=== PATIENT | male | born 1950 | race Caucasian/White ===

== ENCOUNTER 2018-09-01 03:25 | Inpatient (IN) | payer MEDICARE, OTHER ==
[2018-09-01] VITALS (54 sets, daily range): BP systolic 76–152; BP diastolic 44–94; PULSE 68–97; RESP 11–58; BMI 21.5
[~2018-09-01] VITALS: Ht 182.9 cm; Wt 81.8 kg
[~2018-09-01 03:25] MED LIST: ASPI-781 PO; ATOR20TA38 PO; LANT3I SC; LISI10TA2 PO; METF-849 PO
[2018-09-01] MEDS ORDERED: NORepinephrine 8MG/250 ML (PMX 250 ML ONE (03:42)
[2018-09-01] MEDS ORDERED: PROPOFOL 100 ML IV STA ×2 (03:54→04:25)
[2018-09-01] MEDS ORDERED: SODIUM CHLORIDE 0.9% 500 ML BAG IV* STA (03:54)
[2018-09-01] MEDS ORDERED: VECURONIUM 100 MG in DEXTROSE 5% 100 ML IV ONE (03:54)
[2018-09-01] MEDS ORDERED: ASPIRIN 300 MG SUPP PR ONE (04:00)
[2018-09-01] MEDS ORDERED: ARTIFICIAL TEARS 15 ML OPH BOTH EYES ONE (04:00)
[2018-09-01] MEDS ORDERED: OCULAR LUBRICANT 3.5 GM OPH OINT BOTH EYES ONE (04:00)
[2018-09-01] MEDS ORDERED: FENTAnyl 50 MCG/ML VIAL IV PRN (04:00)
[2018-09-01] MEDS ORDERED: PROPOFOL 100 ML ONE (04:06)
[2018-09-01] MEDS ORDERED: CEFEPIME 2GM/50 ML (PMX) 50 ML IVPB STA (04:19)
[2018-09-01] MEDS ORDERED: SODIUM CHLORIDE 0.9% 1L BAG IV* STA (04:19)
[2018-09-01] MEDS ORDERED: VANCOMYCIN 1 GM (PMX) 250 ML IVPB STA (04:19)
[2018-09-01] MEDS ORDERED: NORepinephrine 8MG/250 ML (PMX 250 ML IV ONE (04:30)
[2018-09-01] MEDS ORDERED: FENTAnyl (DRIP) 1000 mcg/100mL 100 ML IV ONE (04:30)
--- NOTE | 2018-09-01 04:56 | ERD ---
ER Documentation Chief Complaint Chief Complaint C/O SOB,PT STATES AFTER TAKING 3 ALKAZELTZER STARTED VOMITING FOAM HPI This is a 67-year-old male who presents for ingestion of [place], started vomiting thereafter. Patient presented with acute distress, history was limited secondary to acuity of condition. Brought in by EMS, EKG showed multiple PVCs on the monitor. Shortly after arrival, patient became bradycardic, and had cardiac arrest. CPR was initiated immediately, and patient was intubated. ROS All systems reviewed and are negative except as per history of present illness. Medications Home Meds Active Scripts Metformin* (Glucophage*) 500 Mg Tab, 500 MG PO BID, #60 TAB Prov:CARMEN OVALLEEEP S. 12/23/13 Lisinopril* (Lisinopril*) 10 Mg Tablet, 10 MG PO DAILY, #30 TAB Prov:CONRAD OVALLEBRONWYN S. 12/23/13 Atorvastatin Calcium* (Atorvastatin Calcium*) 20 Mg Tab, 20 MG PO HS, #30 Prov:CARMEN OVALLEEEP S. 12/23/13 Insulin Glargine* (Lantus*) 100 Unit/Ml Soln, 22 UNIT SC HS for 30 Days Prov:RACARMEN GARLANDEEP S. 12/23/13 Aspirin* (Ecotrin*) 325 Mg Tabec, 325 MG PO DAILY, #30 Prov:CONRAD OVALLEBRONWYN S. 12/23/13 Allergies Allergies: Coded Allergies: No Known Allergies (Verified Allergy, Unknown, 12/21/13) PMhx/Soc History of Surgery: No Anesthesia Reaction: No Hx Neurological Disorder: No Hx Respiratory Disorders: No Hx Cardiac Disorders: Yes (HTN) Hx Psychiatric Problems: No Hx Miscellaneous Medical Probl: Yes (HTN, DM hx of noncompliance per family) Hx Alcohol Use: Yes (OCCASSIONALY OF WINE AND WHISKEY) Hx Substance Use: No Hx Tobacco Use: No Physical Exam Vitals Vital Signs Date Temp Pulse Resp B/P (MAP) Pulse Ox O2 O2 Flow FiO2 Time Delivery Rate 09/01/18 98 22 157/88 100 Mechanical 06:00 (111) Ventilator T Tube 09/01/18 95 23 150/78 100 Mechanical 05:30 (102) Ventilator T Tube 09/01/18 96 29 100 100 05:16 09/01/18 97 28 109/72 100 Mechanical 04:55 (84) Ventilator T Tube 09/01/18 95 23 76/58 (64) 100 Room Air 04:30 09/01/18 119 31 122/90 100 Mechanical 04:00 (101) Ventilator T Tube 09/01/18 96.8 127 23 132/128 89 03:48 (129) 09/01/18 152 35 213/136 100 Mechanical 03:46 (161) Ventilator T Tube 09/01/18 97 18 100 100 03:45 09/01/18 32 6 132/118 69 Room Air 03:28 (123) Physical Exam Const: Patient noted to be in distress, tachypneic actively vomiting Head: Atraumatic Eyes: Normal Conjunctiva ENT: Normal External Ears, Nose and Mouth. Neck: Full range of motion. No meningismus. Resp: Rales noted bilaterally Cardio: Tachycardic, no murmurs Abd: Soft, non tender, non distended. Normal bowel sounds Skin: No petechiae or rashes Back: No midline or flank tenderness Ext: No cyanosis, or edema Neur: Alert and awake, in distress Psych: Unable to assess Result Diagram: 09/01/18 0330 09/01/18 0330 Results 24 hrs Laboratory Tests Test 09/01/18 03:30 09/01/18 04:19 White Blood Count 14.5 10^3/ul Red Blood Count 4.62 10^6/ul Hemoglobin 14.2 g/dl Hematocrit 45.0 % Mean Corpuscular Volume 97.4 fl Mean Corpuscular Hemoglobin 30.7 pg Mean Corpuscular Hemoglobin Concent 31.6 g/dl Red Cell Distribution Width 13.2 % Platelet Count 239 10^3/UL Mean Platelet Volume 12.5 fl Immature Granulocytes % 0.500 % Neutrophils % 55.4 % Lymphocytes % 36.2 % Monocytes % 5.5 % Eosinophils % 1.4 % Basophils % 1.0 % Nucleated Red Blood Cells % 0.0 /100WBC Immature Granulocytes # 0.070 10^3/ul Neutrophils # 8.0 10^3/ul Lymphocytes # 5.3 10^3/ul Monocytes # 0.8 10^3/ul Eosinophils # 0.2 10^3/ul Basophils # 0.2 10^3/ul Nucleated Red Blood Cells # 0.0 10^3/ul Prothrombin Time 12.8 Sec Prothrombin Time Ratio 1.0 INR International Normalized Ratio 0.95 Activated Partial Thromboplast Time 23.0 Sec Sodium Level 141 mmol/L Potassium Level 5.1 mmol/L Chloride Level 106 mmol/L Carbon Dioxide Level 20 mmol/L Anion Gap 15 Blood Urea Nitrogen 25 mg/dl Creatinine 1.47 mg/dl Est Glomerular Filtrat Rate mL/min 48 mL/min Glucose Level 435 mg/dl Calcium Level 9.7 mg/dl Phosphorus Level 5.3 mg/dl Magnesium Level 1.9 mg/dl Total Bilirubin 0.3 mg/dl Direct Bilirubin 0.00 mg/dl Indirect Bilirubin 0.3 mg/dl Aspartate Amino Transf (AST/SGOT) 46 IU/L Alanine Aminotransferase (ALT/SGPT) 38 IU/L Alkaline Phosphatase 150 IU/L Troponin I 0.069 ng/ml Total Protein 7.9 g/dl Albumin 4.5 g/dl Globulin 3.40 g/dl Albumin/Globulin Ratio 1.32 Ethyl Alcohol Level < 10.0 mg/dl Blood Gas Specimen Source Blood arterial Arterial Blood Date Drawn 09/01/2018 5:00:42 AM Arterial Blood pH (Temp corrected) 7.358 Arterial Blood pCO2 (Temp correct) 37.5 mmhg Arterial Blood pO2 (Temp corrected) 131.2 mmHG Arterial Blood HCO3 20.6 mmol/L Arterial Blood Base Excess -4.3 mmol/L Arterial Blood Oxygen Saturation 97.9 mmHG Dejon Test ACCEPTAB Arterial Blood Gas Puncture Site Right Radial Arterial Blood Carboxyhemoglobin 0.3 % Arterial Blood Methemoglobin 0.2 % Blood Gas A-a O2 Differential 544.3 mmHg Oxyhemoglobin Percent 97.4 % Blood Gas Temperature 37.0 C Blood Gas Respiration Rate 18.0 Blood Gas Actual Respiration Rate 24 Blood Gas Modality VENT - AC FiO2 100.0 % Blood Gas Tidal Volume 500.0 mL Blood Gas Low PEEP Setting 5.0 cmH2O Blood Gas Inspiratory Pressure 29.0 Blood Gas Notified Whom LW Blood Gas Notified Time 09/01/2018 5:07:42 AM Current Medications Medications Dose Sig/Bibi Start Time Status Last (Trade) Ordered Route PRN Stop Time Admin Dose Reason Admin 250 ml @ ud STK-MED 09/01/18 DC Norepinephrin ONCE .ROUTE 03:42 e 09/01/18 03:43 Sodium 500 ml ONCE STAT 09/01/18 DC Chloride IV* 03:54 (NS) 5/12/19 04:10 Fentanyl 25 mcg Q10M PRN 09/01/18 09/01/18 (Sublimaze) IV SEDATION 04:00 04:38 Propofol 100 ml @ ONCE STAT 09/01/18 09/01/18 2.1 mls/hr IV 03:54 04:10 09/03/18 03:31 Vecuronium 100 ml @ [id number] 09/01/18 [place] 100 4.2 mls/hr ONCE IV 03:54 mg/ Dextrose 09/02/18 03:42 Eye 1 applic ONCE ONCE 09/01/18 DC Lubricant BOTH EYES 04:00 (Akwa Oint) 09/01/18 04:11 Eye 2 drop ONCE ONCE 09/01/18 DC Lubricant BOTH EYES 04:00 (Artificial 09/01/18 04:10 Tears Oph) Aspirin 300 mg ONCE ONCE 09/01/18 DC (Aspirin) [place] 04:00 09/01/18 04:09 Propofol 100 ml @ ud STK-MED 09/01/18 DC ONCE .ROUTE 04:06 09/01/18 04:07 Sodium 2,100 ml BOLUS OVER 2 09/01/18 DC Chloride HOURS STAT 04:19 (NS) IV* 09/01/18 04:26 Cefepime HCl 50 ml @ ONCE STAT 09/01/18 DC 09/01/18 100 mls/hr IVPB 04:19 05:53 09/01/18 04:48 Vancomycin 250 ml @ ONCE STAT 09/01/18 DC HCl 125 mls/hr IVPB 04:19 09/01/18 06:18 250 ml @ PER PROTOCOL 09/01/18 09/01/18 Norepinephrin 7.5 mls/hr ONCE IV 04:30 04:30 e 09/02/18 13:49 Propofol 100 ml @ ONCE STAT 09/01/18 2.1 mls/hr IV 04:25 09/03/18 04:02 Fentanyl 100 ml @ TITRATE 09/01/18 09/01/18 2.5 mls/hr ONCE IV 04:30 04:42 09/02/18 20:29 1,000 ml @ Q10H IV 09/01/18 Dextrose/Sodi 100 mls/hr 05:27 um Chloride Ondansetron 4 mg Q6H PRN 09/01/18 HCl (Zofran IV NAUSEA 05:30 Inj) AND/OR VOMITING Albuterol 4 puff Q2H RESP 09/01/18 (Ventolin THERAPY PRN 05:30 Hfa) INH SHORTNESS OF BREATH Ipratropium 4 puff Q2H RESP 09/01/18 [place] THERAPY PRN 05:30 (Atrovent INH Hfa) SHORTNESS OF BREATH 650 mg Q4H PRN 09/01/18 Acetaminophen [place] PAIN 05:30 (Tylenol LEVEL 1-3 OR Supp) FEVER 40 mg DAILY@06 09/01/18 DC Pantoprazole IV 06:00 (Protonix 09/01/18 06:00 Iv) Heparin 5,000 unit Q12 SC 09/01/18 Sodium 09:00 (Porcine) (Heparin (5000 Units/1ml)) Propofol 100 ml @ PER 09/01/18 2.1 mls/hr PROTOCOL IV 05:30 Discontinue PROTOCOL 09/01/18 DC Miscellaneous all previ... ONCE XX 05:30 09/01/18 05:40 Information (* Miscellaneous Pharmacy Order) Diagnostic 1 ea Q1H XX 09/01/18 Test (Pha) 05:30 (Accu-Chek) Insulin 100 ml @ 0 PER 09/01/18 Human mls/hr PROTOCOL IV 05:30 Regular 100 unit/ Sodium Chloride Treatment Per 09/01/18 Miscellaneous of protocol XX 05:30 Hypoglycemia: Information 1.BG 51... (* Miscellaneous Pharmacy Order) Dextrose 25 ml Q15M PRN 09/01/18 (D50w IV 05:30 Syringe) .DECREASED GLUCOSE Dextrose 50 ml Q15M PRN 09/01/18 (D50w IV 05:30 Syringe) .DECREASED GLUCOSE Piperacillin 100 ml @ Q6 IVPB 09/01/18 Sod/ 200 mls/hr 05:30 Tazobactam Sod Vancomycin VANCOMYCIN PER 09/01/18 HCl (Vanco PER PHARMACY PROTOCOL XX 05:30 Iv Per Pharmacy) Famotidine 20 mg DAILY@0600 09/01/18 (Pepcid Iv) IV 06:00 Vancomycin 250 ml @ Q24H IVPB 09/02/18 HCl 125 mls/hr 00:00 IV Flush 10 ml STK-MED 09/01/18 DC (NS 10 ml) ONCE .ROUTE 06:00 09/01/18 06:01 Sodium 100 ml @ ud STK-MED 09/01/18 DC Chloride ONCE .ROUTE 06:00 09/01/18 06:01 Iodixanol 100 ml STK-MED 09/01/18 DC (Visipaque ONCE .ROUTE 06:00 Locm) 09/01/18 06:01 Procedures/MDM This 67-year-old male who presented in acute distress, brought in by ambulance after taking [place] pills. History and physical was highly concerning for aspiration event, shortly after patient arrived in the ED, he had a cardiac ar rest, which was most likely secondary to respiratory arrest. CPR was initiated immediately, and the patient was intubated, ROSC was achieved. He was started on broad-spectrum antibiotics, and a central line was placed, I discussed, the patient's critical condition with family EKG: Rate/Rhythm: Sinus tachycardia QRS, ST, T-waves: No changes consistent w/ acute ischemia Impression: No evidence of ischemia or arrhythmia Critical Care Time: 60 minutes Treatments/Evaluations: Close monitoring and treatment of unstable vital signs, cardiorespiratory, and neurologic status, while maintaining tight balance of fluid, respiratory, and cardiac interventions. This time includes discussing the case with the patient and the patient's family. This time does not include all procedures stated elsewhere in this record. This time also includes reviewing old records, labs and radiological studies. This time includes examining and re- examining the patient. Additionally, this time also includes arranging care with admitting and consulting physicians. Central Line Placement by me: Patient consented, sterilely draped, full prep, gown, glove, mask, time out performed. Anesthesia: 1% lidocaine locally Location: Right IJ Device: Multiple lumen Technique: Seldinger technique. Secured with suture. Results: Venous return from all ports with easy saline flush. No complications. Guide wire retrieved and disposed of. [Chest X-ray 1V Interpreted by me: Central line in SVC, Normal soft tissue, No evidence of pneumothorax.] Endotracheal Intubation by me: Pre assessment performed. Pre-oxygenation performed with 100% oxygen RSI: Performed w/o complication or hypoxic events. Medications as ordered. Blade: [Mac 4] ET Tube: 7.5 cm Depth: 22 cm at the lip Intubation confirmed by colorimetric CO2, equal breath sounds, quiet over the stomach. Chest X-ray 1V Interpreted by me: 3 cm above the javier ET tube. Normal soft tissue, No pneumothorax. Departure Diagnosis: Primary Impression: Respiratory arrest Additional Impression: Aspiration pneumonitis Condition: Critical SANDIP RAYMUNDO MD September 01, 2018 04:56
[2018-09-01] MEDS ORDERED: DEXTROSE 5%-0.45% NACL 1,000 ML IV SCH (05:27)
[2018-09-01] MEDS ORDERED: ALBUTEROL HFA 8 GM INHALER INH PRN (05:30)
[2018-09-01] MEDS ORDERED: DEXTROSE 50% 50 ML SYRINGE IV PRN ×4 (05:30→07:30)
[2018-09-01] MEDS ORDERED: INSULIN HUMAN REGULAR 100 UNIT in SOD CHLORIDE 0.9% 99 ML IV SCH ×2 (05:30→07:30)
[2018-09-01] MEDS ORDERED: PROPOFOL 100 ML IV SCH (05:30)
[2018-09-01] MEDS ORDERED: VANCOMYCIN IV PER PHARMACY XX SCH (05:30)
[2018-09-01] MEDS: ACCU-CHEK XX SCH ×36 (05:30→23:30)
[2018-09-01] MEDS ORDERED: IPRATROPIUM (HFA) 12.9 GM INHALER INH PRN (05:30)
[2018-09-01] MEDS ORDERED: ACETAMINOPHEN 650 MG SUPP PR PRN (05:30)
[2018-09-01] MEDS ORDERED: ONDANSETRON 4 MG INJ IV PRN (05:30)
[2018-09-01] MEDS ORDERED: IODIXANOL LOCM 100 ML BTL ONE ×2 (06:00→17:26)
[2018-09-01] MEDS ORDERED: PANTOPRAZOLE 40 MG INJ IV SCH (06:00)
[2018-09-01] MEDS ORDERED: SOD CHLORIDE 0.9% 100 ML ONE (06:00)
--- NOTE | 2018-09-01 07:07 | HP ---
Date/Time of Note Date/Time of Note DATE: 09/01/18 TIME: 06:59 Assessment/Plan VTE Prophylaxis Pharmacological prophylaxis: heparin Lines/Catheters IV Catheter Type (from Nrs): Saline Lock Urinary Cath still in place: Yes Reason Cath still needed: terminal illness/intractable pain Assessment/Plan Assessment/Plan 1. Cardiopulmonary arrest: Likely secondary to aspiration -Patient took multiple [place] for an upset stomach and shortly after he vomited and was forming. He was brought to the ER for respiratory distress. He had arrested in the ER shortly after, status post CPR/ACLS with ROSC. -Admit to ICU -Continue vent support -Broad-spectrum IV antibiotic -Culture of pulmonary aspirate -Pulmonary and cardiology consult -2D echo -Chest x-ray. Chest CT as needed 2. Type 2 diabetes with hyperglycemia: No DKA -Patient with a history of noncompliance and his last A1c was 12 -Insulin drip 3. History of CVA in 2013: Continue aspirin and statin 4. Hypertension: Hold BP meds for now 5. Dyslipidemia statin Result Diagram: 09/01/18 0330 09/01/18 0330 Results 24hrs Laboratory Tests Test 09/01/18 03:30 09/01/18 04:19 White Blood Count 14.5 H Red Blood Count 4.62 L Hemoglobin 14.2 Hematocrit 45.0 Mean Corpuscular Volume 97.4 Mean Corpuscular Hemoglobin 30.7 Mean Corpuscular Hemoglobin Concent 31.6 L Red Cell Distribution Width 13.2 Platelet Count 239 Mean Platelet Volume 12.5 H Immature Granulocytes % 0.500 H Neutrophils % 55.4 Lymphocytes % 36.2 Monocytes % 5.5 Eosinophils % 1.4 Basophils % 1.0 Nucleated Red Blood Cells % 0.0 Immature Granulocytes # 0.070 H Neutrophils # 8.0 H Lymphocytes # 5.3 H Monocytes # 0.8 Eosinophils # 0.2 Basophils # 0.2 H Nucleated Red Blood Cells # 0.0 Prothrombin Time 12.8 Prothrombin Time Ratio 1.0 INR International Normalized Ratio 0.95 Activated Partial Thromboplast Time 23.0 Sodium Level 141 Potassium Level 5.1 Chloride Level 106 Carbon Dioxide Level 20 L Anion Gap 15 H Blood Urea Nitrogen 25 H Creatinine 1.47 H Est Glomerular Filtrat Rate mL/min 48 L Glucose Level 435 *H Calcium Level 9.7 Phosphorus Level 5.3 H Magnesium Level 1.9 Total Bilirubin 0.3 Direct Bilirubin 0.00 Indirect Bilirubin 0.3 Aspartate Amino Transf (AST/SGOT) 46 Alanine Aminotransferase (ALT/SGPT) 38 Alkaline Phosphatase 150 H Troponin I 0.069 Total Protein 7.9 Albumin 4.5 Globulin 3.40 H Albumin/Globulin Ratio 1.32 Ethyl Alcohol Level < 10.0 H Blood Gas Specimen Source Blood arterial Arterial Blood Date Drawn 09/01/2018 5:00:42 AM Arterial Blood pH (Temp corrected) 7.358 Arterial Blood pCO2 (Temp correct) 37.5 Arterial Blood pO2 (Temp corrected) 131.2 H Arterial Blood HCO3 20.6 L Arterial Blood Base Excess -4.3 L Arterial Blood Oxygen Saturation 97.9 Dejon Test ACCEPTAB Arterial Blood Gas Puncture Site Right Radial Arterial Blood Carboxyhemoglobin 0.3 Arterial Blood Methemoglobin 0.2 Blood Gas A-a O2 Differential 544.3 H Oxyhemoglobin Percent 97.4 Blood Gas Temperature 37.0 Blood Gas Respiration Rate 18.0 Blood Gas Actual Respiration Rate 24 Blood Gas Modality VENT - AC FiO2 100.0 Blood Gas Tidal Volume 500.0 Blood Gas Low PEEP Setting 5.0 Blood Gas Inspiratory Pressure 29.0 Blood Gas Notified Whom LW Blood Gas Notified Time 09/01/2018 5:07:42 AM HPI/ROS Admit Date/Time Admit Date/Time Hx of Present Illness This is a 67-year-old male with a history of hypertension, type 2 diabetes, dyslipidemia, CVA in 2013 who presents the ER was respiratory distress. Patient took multiple Sandra-[place] and shortly after he started vomiting and forming. He then went into respiratory distress. When EMS arrived, he was found in moderate distress sitting on the couch. Shortly after arriving to the ER, he went into cardiopulmonary arrest. CPR/ACLS was initiated with ROSC. He was intubated and currently awaiting admission to ICU. Initially he had an oxygen saturation of 69 and a documented respiratory rate of 6. Blood glucose greater than 400, no DKA. Creatinine 1.47. PMH/Family/Social Past Medical History Past Surgical Hx: other (see hpi) Family History Significant Family History: no pertinent family hx Social History Alcohol Use: none Smoking Status: Never smoker Drug Use: none Exam Exam Constitutional: other (No acute distress) Head: normocephalic, atraumatic Eyes: EOMI, PERRL Respiratory: other (no wheezing or Rhonchi) Cardiovascular: normal pulse Gastrointestinal: soft, non-tender Extremities: normal pulses Medications Current Medications Fentanyl (Sublimaze) 25 mcg Q10M PRN IV SEDATION Last administered on 09/01/18at 04:38; Admin Dose 25 MCG; Start 09/01/18 at 04:00 Propofol 100 ml @ 2.1 mls/hr ONCE STAT IV Last administered on 09/01/18at 04:10; Admin Dose 2.1 MLS/HR; Start 09/01/18 at 03:54; Stop 09/03/18 at 03:31 Vecuronium [place] 100 mg/ Dextrose 100 ml @ 4.2 mls/hr [id number] ONCE IV ; Start 09/01/18 at 03:54; Stop 09/02/18 at 03:42 Norepinephrine 250 ml @ 7.5 mls/hr PER PROTOCOL ONCE IV Last administered on 09/01/18at 04:30; Admin Dose 7.5 MLS/HR; Start 09/01/18 at 04:30; Stop 09/02/18 at 13:49 Propofol 100 ml @ 2.1 mls/hr ONCE STAT IV ; Start 09/01/18 at 04:25; Stop 09/03/18 at 04:02 Fentanyl 100 ml @ 2.5 mls/hr TITRATE ONCE IV Last administered on 09/01/18at 04:42; Admin Dose 2.5 MLS/HR; Start 09/01/18 at 04:30; Stop 09/02/18 at 20:29 Dextrose/Sodium Chloride 1,000 ml @ 100 mls/hr Q10H IV ; Start 09/01/18 at 05:27 Ondansetron HCl (Zofran Inj) 4 mg Q6H PRN IV NAUSEA AND/OR VOMITING; Start 09/01/18 at 05:30 Albuterol (Ventolin Hfa) 4 puff Q2H RESP THERAPY PRN INH SHORTNESS OF BREATH; Start 09/01/18 at 05:30 Ipratropium [place] (Atrovent Hfa) 4 puff Q2H RESP THERAPY PRN INH SHORTNESS OF BREATH; Start 09/01/18 at 05:30 Acetaminophen (Tylenol Supp) 650 mg Q4H PRN DC PAIN LEVEL 1-3 OR FEVER; Start 09/01/18 at 05:30 Heparin Sodium (Porcine) (Heparin (5000 Units/1ml)) 5,000 unit Q12 SC ; Start 09/01/18 at 09:00 Propofol 100 ml @ 2.1 mls/hr PER PROTOCOL IV ; Start 09/01/18 at 05:30 Diagnostic Test (Pha) (Accu-Chek) 1 ea Q1H XX ; Start 09/01/18 at 05:30 Insulin Human Regular 100 unit/ Sodium Chloride 100 ml @ 0 mls/hr PER PROTOCOL IV ; Start 09/01/18 at 05:30 Miscellaneous Information (* Miscellaneous Pharmacy Order) Treatment of Hypoglycemia: 1.BG 51... Per protocol XX ; Start 09/01/18 at 05:30 Dextrose (D50w Syringe) 25 ml Q15M PRN IV .DECREASED GLUCOSE; Start 09/01/18 at 05:30 Dextrose (D50w Syringe) 50 ml Q15M PRN IV .DECREASED GLUCOSE; Start 09/01/18 at 05:30 Piperacillin Sod/ Tazobactam Sod 100 ml @ 200 mls/hr Q6 IVPB ; Start 09/01/18 at 05:30 Vancomycin HCl (Vanco Iv Per Pharmacy) VANCOMYCIN PER PHARMACY PER PROTOCOL XX ; Start 09/01/18 at 05:30 Famotidine (Pepcid Iv) 20 mg DAILY@0600 IV ; Start 09/01/18 at 06:00 Vancomycin HCl 250 ml @ 125 mls/hr Q24H IVPB ; Start 09/02/18 at 00:00 Coded Allergies: No Known Allergies (Verified Allergy, Unknown, 12/21/13) Social History Smoking Status: Unknown if ever smoked Exam/Review of Systems Vital Signs Vitals Vital Signs Date Temp Pulse Resp B/P (MAP) Pulse Ox O2 O2 Flow FiO2 Time Delivery Rate 09/01/18 98 22 157/88 100 Mechanical 06:00 (111) Ventilator T Tube 09/01/18 100 05:16 09/01/18 96.8 03:48 CAITLYN SILVA MD September 01, 2018 07:07
[2018-09-01] MEDS: PIPER-TAZO 3.375 GM IV (PMX) 100 ML IVPB SCH ×3 (07:23→21:34)
[2018-09-01] MEDS: VANCOMYCIN HCL 1.5 GM in SOD CHLORIDE 0.9% 250 ML IVPB SCH ×2 (08:27→09:32)
[2018-09-01] MEDS: ASPIRIN (EC) 325 MG TAB PO SCH (09:00)
[2018-09-01] MEDS ORDERED: HEPARIN 5,000 UNIT/1 ML VIAL SC SCH (09:00)
[2018-09-01] MEDS: FAMOTIDINE 20 MG INJ IV SCH (11:57)
[2018-09-01] MEDS ORDERED: HEPARIN 1000 UNITS/ML 10 ML INJ IV PRN ×2 (12:00→13:30)
--- NOTE | 2018-09-01 12:14 | CONS ---
Assessment/Plan Assessment/Plan Hospital Course (Demo Recall) Non-ST elevation myocardial infarction Shock: Probably a combination of septic and cardiac area currently on Levophed drip Hypoxemic respiratory failure status post intubation on the vent Diabetes with diabetes ketoacidosis Hypertension currently hypotensive in shock Dyslipidemia Peripheral vascular disease History of CVA Status post cardiopulmonary arrest Likely pneumonia possibly aspiration Recommendations: I will start the patient on heparin drip for now. Continue with aspirin Continue with the Levophed Vent support will be considered by the pulmonary Hypothermia was not initiated to the fact the patient was responsive reportedly Plan for left heart catheterization coronary angiogram percutaneous coronary intervention. Risk-benefit alternative procedure discussed with the patient and his and his daughter in detail previous including but not limited to risk of renal failure infection vascular complication bleeding complication MT stroke arrhythmia renal failure etc. discussed with him. Consent has been obtained Thank you for this referral. We will continue to follow him with you KAY MARRERO MD [facility] Consultation Date/Type/Reason Admit Date/Time Date of Consultation: September 01, 2018 Type of Consult Cardiology Reason for Consultation NSTEMI Requesting Provider: RONNI NUNEZ Date/Time of Note DATE: 09/01/18 TIME: 12:02 Hx of Present Illness Interventional cardiology consultation note Chief complaint: Respiratory failure Reason for consult: Abnormal troponin History of present illness: Thank you for this referral. History was obtained from the patient's family including daughters and . From discussion physician staff review of the [facility] rt This is a 67-year-old male with a history of hypertension, type 2 diabetes, dyslipidemia, CVA in 2013 who presents the ER was respiratory distress. According to the family patient has complains of abdominal discomfort bloating shortness of breath and possibly abdominal/chest discomfort yesterday. Patient has taken 6 packs of [place] and shortly after he started vomiting and forming. He then went into respiratory distress. When EMS arrived, he was found in moderate distress sitting on the couch. Shortly after arriving to the ER, he went into cardiopulmonary arrest. CPR/ACLS was initiated with [facility]. He was intubated and currently intubated in ICU. She is hypotensive and is on Levophed drip. Initial troponin was negative with subsequent troponin has been 6. Cardiology was consulted. Patient currently is unresponsive and sedated with according to the RN nurse he was following commands and answering questions very appropriately before he gets more sedation. Allergies: No known drug allergies Medications were reviewed as per medical reconciliation sheet Family history: No reported history of early coronary artery disease Social history: Positive for smoking Past medical history: Diabetes, hypertension, dyslipidemia, history of CVA in 2014, smoker Review of system: Patient denies all others except for above-mentioned Past Medical History Home Meds Active Scripts Metformin* (Glucophage*) 500 Mg Tab, 500 MG PO BID, #60 TAB Prov:BRONWYN OVALLE S. 12/23/13 Lisinopril* (Lisinopril*) 10 Mg Tablet, 10 MG PO DAILY, #30 TAB Prov:ARMANDO OVALLEP S. 12/23/13 Atorvastatin Calcium* (Atorvastatin Calcium*) 20 Mg Tab, 20 MG PO HS, #30 Prov:BRONWYN OVALLE S. 12/23/13 Insulin Glargine* (Lantus*) 100 Unit/Ml Soln, 22 UNIT SC HS for 30 Days Prov:BRONWYN OVALLE S. 12/23/13 Aspirin* (Ecotrin*) 325 Mg Tabec, 325 MG PO DAILY, #30 Prov:VASQUEZBRONWYN S. 12/23/13 Medications Current Medications Fentanyl (Sublimaze) 25 mcg Q10M PRN IV SEDATION Last administered on 09/01/18at 04:38; Admin Dose 25 MCG; Start 09/01/18 at 04:00 Propofol 100 ml @ 2.1 mls/hr ONCE STAT IV Last administered on 09/01/18at 04:10; Admin Dose 2.1 MLS/HR; Start 09/01/18 at 03:54; Stop 09/03/18 at 03:31 Vecuronium Nova 100 mg/ Dextrose 100 ml @ 4.2 mls/hr [id number] ONCE IV ; Start 09/01/18 at 03:54; Stop 09/02/18 at 03:42 Norepinephrine 250 ml @ 7.5 mls/hr PER PROTOCOL ONCE IV Last administered on 09/01/18at 04:30; Admin Dose 7.5 MLS/HR; Start 09/01/18 at 04:30; Stop 09/02/18 at 13:49 Propofol 100 ml @ 2.1 mls/hr ONCE STAT IV ; Start 09/01/18 at 04:25; Stop 09/03/18 at 04:02 Fentanyl 100 ml @ 2.5 mls/hr TITRATE ONCE IV Last administered on 09/01/18at 04:42; Admin Dose 2.5 MLS/HR; Start 09/01/18 at 04:30; Stop 09/02/18 at 20:29 Dextrose/Sodium Chloride 1,000 ml @ 100 mls/hr Q10H IV ; Start 09/01/18 at 05:27 Ondansetron HCl (Zofran Inj) 4 mg Q6H PRN IV NAUSEA AND/OR VOMITING; Start 09/01/18 at 05:30 Albuterol (Ventolin Hfa) 4 puff Q2H RESP THERAPY PRN INH SHORTNESS OF BREATH; Start 09/01/18 at 05:30 Ipratropium Nova (Atrovent Hfa) 4 puff Q2H RESP THERAPY PRN INH SHORTNESS OF BREATH; Start 09/01/18 at 05:30 Acetaminophen (Tylenol Supp) 650 mg Q4H PRN ND PAIN LEVEL 1-3 OR FEVER; Start 09/01/18 at 05:30 Heparin Sodium (Porcine) (Heparin (5000 Units/1ml)) 5,000 unit Q12 SC Last administered on 09/01/18at 09:47; Admin Dose 5,000 UNIT; Start 09/01/18 at 09:00 Propofol 100 ml @ 2.1 mls/hr PER PROTOCOL IV ; Start 09/01/18 at 05:30 Diagnostic Test (Pha) (Accu-Chek) 1 ea Q1H XX Last administered on 09/01/18at 11:41; Admin Dose 1 EA; Start 09/01/18 at 05:30 Miscellaneous Information (* Miscellaneous Pharmacy Order) Treatment of Hypoglycemia: 1.BG 51... Per protocol XX ; Start 09/01/18 at 05:30 Dextrose (D50w Syringe) 25 ml Q15M PRN IV .DECREASED GLUCOSE; Start 09/01/18 at 05:30 Dextrose (D50w Syringe) 50 ml Q15M PRN IV .DECREASED GLUCOSE; Start 09/01/18 at 05:30 Piperacillin Sod/ Tazobactam Sod 100 ml @ 200 mls/hr Q6 IVPB Last administered on 09/01/18at 11:44; Admin Dose 200 MLS/HR; Start 09/01/18 at 05:30 Vancomycin HCl (Vanco Iv Per Pharmacy) VANCOMYCIN PER PHARMACY PER PROTOCOL XX ; Start 09/01/18 at 05:30 Famotidine (Pepcid Iv) 20 mg DAILY@0600 IV Last administered on 09/01/18at 11:57 ; Admin Dose 20 MG; Start 09/01/18 at 06:00 Vancomycin HCl 250 ml @ 125 mls/hr Q24H IVPB ; Start 09/02/18 at 08:00 Aspirin (Ecotrin) 325 mg DAILY PO ; Start 09/01/18 at 09:00 Atorvastatin Calcium (Lipitor) 20 mg HS PO ; Start 09/01/18 at 21:00 Diagnostic Test (Pha) (Accu-Chek) 1 ea Q1H XX Last administered on 09/01/18at 11:45; Admin Dose 1 EA; Start 09/01/18 at 07:30 Insulin Human Regular 100 unit/ Sodium Chloride 100 ml @ 0 mls/hr PER PROTOCOL IV ; Start 09/01/18 at 07:30 Miscellaneous Information (* Miscellaneous Pharmacy Order) Treatment of Hypoglycemia: 1.BG 51... Per protocol XX ; Start 09/01/18 at 07:30 Dextrose (D50w Syringe) 25 ml Q15M PRN IV .DECREASED GLUCOSE; Start 09/01/18 at 07:30 Dextrose (D50w Syringe) 50 ml Q15M PRN IV .DECREASED GLUCOSE; Start 09/01/18 at 07:30 Vancomycin HCl 1.5 gm/Sodium Chloride 250 ml @ 83.333 mls/ hr Q24H IVPB Last administered on 09/01/18at 09:32; Admin Dose 83.333 MLS/HR; Start 09/01/18 at 08:00 Allergies: Coded Allergies: No Known Allergies (Verified Allergy, Unknown, 12/21/13) Social History Smoking Status: Unknown if ever smoked Exam/Review of Systems Vital Signs Vitals Vital Signs Date Temp Pulse Resp B/P (MAP) Pulse Ox O2 O2 Flow FiO2 Time Delivery Rate 09/01/18 70 19 100 75 11:05 09/01/18 95/69 (78) Mechanical 11:00 Ventilator 09/01/18 98.6 09:30 09/01/18 10.0 08:45 Exam Exam General: Obese gentleman status post intubation on the vent HEENT: NC/AT. pupils are equal pinpoint to NECK: NO JVD. no stridor. CV: RRR. systolic murmur; no gallop or rubs. PULM: no wheezing . +rhonchi. GI: SOFT, NT, ND, no rebound or guarding Extremity: trace B/L LE edema. no clubbing. neuro: Sedated Psych: calm and pleasant rectal: deferred : s/p piper Multiple EKGs was reviewed. Initial EKG shows narrow complex tachycardia. Possible junctional tachycardia. Inferior infarct anterior infarct age undetermined this week ST-T wave abnormalities EKG done at 1147 shows normal sinus rhythm. Anterior infarct age undetermined inferior infarct age undetermined CT pulmonary angiogram done in the emergency room shows: CTA aorta and branches: The thoracic aorta is normal in contour and caliber with no dissection or aneurysmal dilatation. Mild scattered atherosclerotic plaque is identified. Similarly, the abdominal aorta is patent and normal in caliber with no dissection or stenosis evident. Moderate fibrocalcific plaque is scattered throughout the aorta and proximal aortic branches. The celiac axis is patent without a high-grade stenosis. Fibrocalcific plaque is seen in the proximal celiac axis and proximal splenic artery without high grade stenoses. Mild soft plaque is seen in the mid superior mesenteric artery without a high- grade stenosis. The main renal arteries are patent and grossly normal in appearance aside from scattered atherosclerotic plaque. The inferior mesenteric artery is also patent and grossly normal appearance. There is moderate fibrocalcific plaque within the common iliac arteries bilaterally with areas of mild narrowing but no high-grade stenosis. Moderate fibrocalcific plaque is seen in the proximal internal iliac arteries with areas of prominent stenosis seen on the right. CT chest: The main pulmonary arteries are normal in appearance. There are moderate size bilateral pleural effusions with associated atelectasis / consolidation in the lower lobes. The heart is mildly enlarged. Extensive atherosclerotic calcifications of the coronary arteries are seen. An endotracheal tube is situated approximately 2 cm above the [address]. CT abdomen and pelvis: Scatter artifact from the patient's arms being at his side precludes detailed evaluation of the liver and spleen though no gross abno rmalities are seen. The gallbladder, pancreas, adrenal glands, and kidneys are grossly normal in appearance. The visualized bowel is grossly unremarkable. No significant free air or free fluid is seen. The urinary bladder is decompressed by Piper catheter. Dehiscence of the inguinal canals is seen bilaterally. Degenerative changes of the thoracolumbar spine are seen diffusely. Labs Result Diagram: 09/01/18 0330 09/01/18 0330 Results 24hrs Laboratory Tests Test 09/01/18 03:30 09/01/18 04:19 09/01/18 07:14 09/01/18 07:16 White Blood Count 14.5 H Red Blood Count 4.62 L Hemoglobin 14.2 Hematocrit 45.0 Mean Corpuscular 97.4 Volume Mean Corpuscular 30.7 Hemoglobin Mean Corpuscular 31.6 L Hemoglobin Concen t Red Cell 13.2 Distribution Width Platelet Count 239 Mean Platelet 12.5 H Volume Immature 0.500 H Granulocytes % Neutrophils % 55.4 Lymphocytes % 36.2 Monocytes % 5.5 Eosinophils % 1.4 Basophils % 1.0 Nucleated Red 0.0 Blood Cells % Immature 0.070 H Granulocytes # Neutrophils # 8.0 H Lymphocytes # 5.3 H Monocytes # 0.8 Eosinophils # 0.2 Basophils # 0.2 H Nucleated Red 0.0 Blood Cells # Prothrombin Time 12.8 Prothrombin Time 1.0 Ratio INR International 0.95 Normalized Ratio Activated 23.0 Partial Thrombopl ast Time Sodium Level 141 Potassium Level 5.1 Chloride Level 106 Carbon Dioxide 20 L Level Anion Gap 15 H Blood Urea 25 H Nitrogen Creatinine 1.47 H Est Glomerular 48 L Filtrat Rate mL/min Glucose Level 435 *H Calcium Level 9.7 Phosphorus Level 5.3 H Magnesium Level 1.9 Total Bilirubin 0.3 Direct Bilirubin 0.00 Indirect 0.3 Bilirubin Aspartate Amino 46 Transf (AST/SGOT) Alanine 38 Aminotransferase (ALT/SGPT) Alkaline 150 H Phosphatase Troponin I 0.069 Total Protein 7.9 Albumin 4.5 Globulin 3.40 H Albumin/Globulin 1.32 Ratio Ethyl Alcohol < 10.0 H Level Blood Gas Blood arterial Specimen Source Arterial Blood 09/01/2018 5:00:4 Date Drawn 2 AM Arterial Blood pH 7.358 (Temp corrected) Arterial Blood 37.5 pCO2 (Temp correct) Arterial Blood 131.2 H pO2 (Temp corrected) Arterial Blood 20.6 L HCO3 Arterial Blood -4.3 L Base Excess Arterial Blood 97.9 Oxygen Saturation Dejon Test ACCEPTAB Arterial Blood Right Radial Gas Puncture Site Arterial 0.3 Blood Carboxyhemo globin Arterial Blood 0.2 Methemoglobin Blood Gas A-a O2 544.3 H Differential Oxyhemoglobin 97.4 Percent Blood Gas 37.0 Temperature Blood Gas 18.0 Respiration Rate Blood Gas Actual 24 Respiration Rate Blood Gas VENT - AC Modality FiO2 100.0 Blood Gas Tidal 500.0 Volume Blood Gas Low 5.0 PEEP Setting Blood Gas 29.0 Inspiratory Pressure Blood Gas LW Notified Whom Blood Gas 09/01/2018 5:07:4 Notified Time 2 AM Bedside Glucose 453 *H Lactic Acid Level 2.1 *H Salicylates Level 2.5 L Acetaminophen < 10.0 L Level Test 09/01/18 08:14 09/01/18 09:42 09/01/18 10:04 09/01/18 10:29 Bedside Glucose 439 *H 361 H 343 H Lactic Acid Level 2.9 *H Creatine Kinase 413 H Creatine Kinase 6.7 Index Creatinine Kinase 27.80 H MB (Mass) Troponin I 6.360 *H Medications Medications Current Medications Fentanyl (Sublimaze) 25 mcg Q10M PRN IV SEDATION Last administered on 09/01/18at 04:38; Admin Dose 25 MCG; Start 09/01/18 at 04:00 Propofol 100 ml @ 2.1 mls/hr ONCE STAT IV Last administered on 09/01/18at 04:10; Admin Dose 2.1 MLS/HR; Start 09/01/18 at 03:54; Stop 09/03/18 at 03:31 Vecuronium Nova 100 mg/ Dextrose 100 ml @ 4.2 mls/hr [id number] ONCE IV ; Start 09/01/18 at 03:54; Stop 09/02/18 at 03:42 Norepinephrine 250 ml @ 7.5 mls/hr PER PROTOCOL ONCE IV Last administered on 09/01/18at 04:30; Admin Dose 7.5 MLS/HR; Start 09/01/18 at 04:30; Stop 09/02/18 at 13:49 Propofol 100 ml @ 2.1 mls/hr ONCE STAT IV ; Start 09/01/18 at 04:25; Stop 09/03/18 at 04:02 Fentanyl 100 ml @ 2.5 mls/hr TITRATE ONCE IV Last administered on 09/01/18at 04:42; Admin Dose 2.5 MLS/HR; Start 09/01/18 at 04:30; Stop 09/02/18 at 20:29 Dextrose/Sodium Chloride 1,000 ml @ 100 mls/hr Q10H IV ; Start 09/01/18 at 05:27 Ondansetron HCl (Zofran Inj) 4 mg Q6H PRN IV NAUSEA AND/OR VOMITING; Start 09/01/18 at 05:30 Albuterol (Ventolin Hfa) 4 puff Q2H RESP THERAPY PRN INH SHORTNESS OF BREATH; Start 09/01/18 at 05:30 Ipratropium Nova (Atrovent Hfa) 4 puff Q2H RESP THERAPY PRN INH SHORTNESS OF BREATH; Start 09/01/18 at 05:30 Acetaminophen (Tylenol Supp) 650 mg Q4H PRN ND PAIN LEVEL 1-3 OR FEVER; Start 09/01/18 at 05:30 Heparin Sodium (Porcine) (Heparin (5000 Units/1ml)) 5,000 unit Q12 SC Last administered on 09/01/18at 09:47; Admin Dose 5,000 UNIT; Start 09/01/18 at 09:00 Propofol 100 ml @ 2.1 mls/hr PER PROTOCOL IV ; Start 09/01/18 at 05:30 Diagnostic Test (Pha) (Accu-Chek) 1 ea Q1H XX Last administered on 09/01/18at 11:41; Admin Dose 1 EA; Start 09/01/18 at 05:30 Miscellaneous Information (* Miscellaneous Pharmacy Order) Treatment of Hypoglycemia: 1.BG 51... Per protocol XX ; Start 09/01/18 at 05:30 Dextrose (D50w Syringe) 25 ml Q15M PRN IV .DECREASED GLUCOSE; Start 09/01/18 at 05:30 Dextrose (D50w Syringe) 50 ml Q15M PRN IV .DECREASED GLUCOSE; Start 09/01/18 at 05:30 Piperacillin Sod/ Tazobactam Sod 100 ml @ 200 mls/hr Q6 IVPB Last administered on 09/01/18at 11:44; Admin Dose 200 MLS/HR; Start 09/01/18 at 05:30 Vancomycin HCl (Vanco Iv Per Pharmacy) VANCOMYCIN PER PHARMACY PER PROTOCOL XX ; Start 09/01/18 at 05:30 Famotidine (Pepcid Iv) 20 mg DAILY@0600 IV Last administered on 09/01/18at 11:57; Admin Dose 20 MG; Start 09/01/18 at 06:00 Vancomycin HCl 250 ml @ 125 mls/hr Q24H IVPB ; Start 09/02/18 at 08:00 Aspirin (Ecotrin) 325 mg DAILY PO ; Start 09/01/18 at 09:00 Atorvastatin Calcium (Lipitor) 20 mg HS PO ; Start 09/01/18 at 21:00 Diagnostic Test (Pha) (Accu-Chek) 1 ea Q1H XX Last administered on 09/01/18at 11:45; Admin Dose 1 EA; Start 09/01/18 at 07:30 Insulin Human Regular 100 unit/ Sodium Chloride 100 ml @ 0 mls/hr PER PROTOCOL IV ; Start 09/01/18 at 07:30 Miscellaneous Information (* Miscellaneous Pharmacy Order) Treatment of Hypoglycemia: 1.BG 51... Per protocol XX ; Start 09/01/18 at 07:30 Dextrose (D50w Syringe) 25 ml Q15M PRN IV .DECREASED GLUCOSE; Start 09/01/18 at 07:30 Dextrose (D50w Syringe) 50 ml Q15M PRN IV .DECREASED GLUCOSE; Start 09/01/18 at 07:30 Vancomycin HCl 1.5 gm/Sodium Chloride 250 ml @ 83.333 mls/ hr Q24H IVPB Last administered on 09/01/18at 09:32; Admin Dose 83.333 MLS/HR; Start 09/01/18 at 08:00 KAY MARRERO MD September 01, 2018 12:14
[2018-09-01] MEDS: NORepinephrine 8MG/250 ML (PMX 250 ML IV SCH (12:18)
[2018-09-01] MEDS ORDERED: CARBOXYMETHYLCELLULOSE 0.5% 0.4 ML OPH BOTH EYES SCH (12:30)
--- NOTE | 2018-09-01 12:36 | CONS ---
Assessment/Plan Assessment/Plan Assessment/Plan (Daily) IMP: 1. Cardiopulmonary Arrest--2/2 acute NSTEMI with associated pulmonary edema resulting in respiratory failure and subsequent arrest. 2. Acute NSTEMI 3. Shock--possibly cardiogenic, although cannot exclude co-existing sepsis 4. CHF 5. Possible aspiration pneumonitis 6. [place] 7. DM 8. H/O CVA RECS: 1. Vent support. Will adjust settings. 2. Follow neuro exam closely 3. Follow serial TnI 4. LHC as per Cardiology 5. Broad-spectrum abx 6. Otero-cultures 7. Follow renal function closely 8. Serial lactates 9. Stat ECHO 10. Anticoagulation and antiplatelet therapy as per Cardiology 11. Obtain CVP via CVC Consultation Date/Type/Reason Admit Date/Time Date of Consultation: September 01, 2018 Type of Consult Pulm/CCM Date/Time of Note DATE: 09/01/18 TIME: 12:26 Hx of Present Illness Briefly, this is a 67-year-old male with a history of hypertension, type 2 diabetes, dyslipidemia, CVA in 2013, who presented to the ED early this morning with a history of recent abdominal discomfort and shortness of breath. Per records, it appears that he was in cardiopulmonary arrest at the time of arrival requiring intubation and CPR with ROSC within 10 minutes. Subsequently, patient noted to be responsive, therefore, induced hypothermia was not initiated. Initial imaging including CT pulmonary angio consistent with acute decompensated heart failure. Initial TnI noted to be 6. He is currently intubated and sedated in the ICU, requiring low-dose levophed gtt. Subjective hx not possible: pt non-verbal Past Medical History Medical History: diabetes, high cholesterol, hypertension Home Meds Active Scripts Metformin* (Glucophage*) 500 Mg Tab, 500 MG PO BID, #60 TAB Prov:BRONWYN OVALLE S. 12/23/13 Lisinopril* (Lisinopril*) 10 Mg Tablet, 10 MG PO DAILY, #30 TAB Prov:BRONWYN OVALLE S. 12/23/13 Atorvastatin Calcium* (Atorvastatin Calcium*) 20 Mg Tab, 20 MG PO HS, #30 Prov:BRONWYN OVALLE S. 12/23/13 Insulin Glargine* (Lantus*) 100 Unit/Ml Soln, 22 UNIT SC HS for 30 Days Prov:BRONWYN OVALLE S. 12/23/13 Aspirin* (Ecotrin*) 325 Mg Tabec, 325 MG PO DAILY, #30 Prov:BRONWYN OVALLE S. 12/23/13 Medications Current Medications Fentanyl (Sublimaze) 25 mcg Q10M PRN IV SEDATION Last administered on 09/01/18at 04:38; Admin Dose 25 MCG; Start 09/01/18 at 04:00 Propofol 100 ml @ 2.1 mls/hr ONCE STAT IV Last administered on 09/01/18at 04:10; Admin Dose 2.1 MLS/HR; Start 09/01/18 at 03:54; Stop 09/03/18 at 03:31 Vecuronium [place]flow 100 mg/ Dextrose 100 ml @ 4.2 mls/hr [id number] ONCE IV ; Start 09/01/18 at 03:54; Stop 09/02/18 at 03:42 Norepinephrine 250 ml @ 7.5 mls/hr PER PROTOCOL ONCE IV Last administered on 09/01/18at 04:30; Admin Dose 7.5 MLS/HR; Start 09/01/18 at 04:30; Stop 09/02/18 at 13:49 Propofol 100 ml @ 2.1 mls/hr ONCE STAT IV ; Start 09/01/18 at 04:25; Stop 09/03/18 at 04:02 Fentanyl 100 ml @ 2.5 mls/hr TITRATE ONCE IV Last administered on 09/01/18at 04:42; Admin Dose 2.5 MLS/HR; Start 09/01/18 at 04:30; Stop 09/02/18 at 20:29 Dextrose/Sodium Chloride 1,000 ml @ 100 mls/hr Q10H IV ; Start 09/01/18 at 05:27 Ondansetron HCl (Zofran Inj) 4 mg Q6H PRN IV NAUSEA AND/OR VOMITING; Start 09/01/18 at 05:30 Albuterol (Ventolin Hfa) 4 puff Q2H RESP THERAPY PRN INH SHORTNESS OF BREATH; Start 09/01/18 at 05:30 Ipratropium Waterflow (Atrovent Hfa) 4 puff Q2H RESP THERAPY PRN INH SHORTNESS OF BREATH; Start 09/01/18 at 05:30 Acetaminophen (Tylenol Supp) 650 mg Q4H PRN [place] PAIN LEVEL 1-3 OR FEVER; Start 09/01/18 at 05:30 Heparin Sodium (Porcine) (Heparin (5000 Units/1ml)) 5,000 unit Q12 SC Last administered on 09/01/18 09:47; Admin Dose 5,000 UNIT; Start 09/01/18 at 09:00 Diagnostic Test (Pha) (Accu-Chek) 1 ea Q1H XX Last administered on 09/01/18at 11:41; Admin Dose 1 EA; Start 09/01/18 at 05:30 Miscellaneous Information (* Miscellaneous Pharmacy Order) Treatment of Hypoglycemia: 1.BG 51... Per protocol XX ; Start 09/01/18 at 05:30 Dextrose (D50w Syringe) 25 ml Q15M PRN IV .DECREASED GLUCOSE; Start 09/01/18 at 05:30 Dextrose (D50w Syringe) 50 ml Q15M PRN IV .DECREASED GLUCOSE; Start 09/01/18 at 05:30 Piperacillin Sod/ Tazobactam Sod 100 ml @ 200 mls/hr Q6 IVPB Last administered on 09/01/18at 11:44; Admin Dose 200 MLS/HR; Start 09/01/18 at 05:30 Vancomycin HCl (Vanco Iv Per Pharmacy) VANCOMYCIN PER PHARMACY PER PROTOCOL XX ; Start 09/01/18 at 05:30 Famotidine (Pepcid Iv) 20 mg DAILY@0600 IV Last administered on 09/01/18 11:57; Admin Dose 20 MG; Start 09/01/18 at 06:00 Vancomycin HCl 250 ml @ 125 mls/hr Q24H IVPB ; Start 09/02/18 at 08:00 Aspirin (Ecotrin) 325 mg DAILY PO ; Start 09/01/18 at 09:00 Atorvastatin Calcium (Lipitor) 20 mg HS PO ; Start 09/01/18 at 21:00 Diagnostic Test (Pha) (Accu-Chek) 1 ea Q1H XX Last administered on 09/01/18 11:45; Admin Dose 1 EA; Start 09/01/18 at 07:30 Insulin Human Regular 100 unit/ Sodium Chloride 100 ml @ 0 mls/hr PER PROTOCOL IV ; Start 09/01/18 at 07:30 Miscellaneous Information (* Miscellaneous Pharmacy Order) Treatment of Hypoglycemia: 1.BG 51... Per protocol XX ; Start 09/01/18 at 07:30 Dextrose (D50w Syringe) 25 ml Q15M PRN IV .DECREASED GLUCOSE; Start 09/01/18 at 07:30 Dextrose (D50w Syringe) 50 ml Q15M PRN IV .DECREASED GLUCOSE; Start 09/01/18 at 07:30 Vancomycin HCl 1.5 gm/Sodium Chloride 250 ml @ 83.333 mls/ hr Q24H IVPB Last administered on 09/01/18at 09:32; Admin Dose 83.333 MLS/HR; Start 09/01/18 at 08:00 Heparin Sodium (Porcine) (Heparin (1000 Units/ml)) 4,000 unit PER PROTOCOL PRN IV aPTT<47; Start 09/01/18 at 12:00 Eye Lubricant (Refresh Plus) 2 drop ONCE BOTH EYES ; Start 09/01/18 at 12:30; Stop 09/01/18 at 12:31 Norepinephrine 250 ml @ 1.875 mls/ hr TITRATE IV Last administered on 09/01/18at 12:18; Admin Dose 15 MLS/HR; Start 09/01/18 at 12:30 Propofol 100 ml @ 2.1 mls/hr Q12H IV ; Start 09/01/18 at 12:30 Allergies: Coded Allergies: No Known Allergies (Verified Allergy, Unknown, 12/21/13) Past Surgical History unknown Family History Significant Family History: no pertinent family hx Social History Alcohol Use: other (unknown ) Smoking Status: Unknown if ever smoked Drug Use: none Exam/Review of Systems Exam Vitals Vital Signs Date Temp Pulse Resp B/P (MAP) Pulse Ox O2 O2 Flow FiO2 Time Delivery Rate 09/01/18 70 19 100 75 11:05 09/01/18 95/69 (78) Mechanical 11:00 Ventilator 09/01/18 98.6 09:30 09/01/18 10.0 08:45 Head: normocephalic, atraumatic Eyes: nl conjunctiva, nl lids, nl sclera ENMT: intubated Neck: supple, non-tender, jvd Respiratory: crackles/rales Cardiovascular: regular rate and rhythm, jugular venous distention (JVD) Gastrointestinal: soft, nl liver, spleen, non-tender Musculoskeletal: nl extremities to inspection Extremities: normal pulses 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 Results Result Diagram: 09/01/18 0330 09/01/18 0330 Results 24hrs Laboratory Tests Test 09/01/18 03:30 09/01/18 04:19 09/01/18 07:14 09/01/18 07:16 White Blood Count 14.5 H Red Blood Count 4.62 L Hemoglobin 14.2 Hematocrit 45.0 Mean Corpuscular 97.4 Volume Mean Corpuscular 30.7 Hemoglobin Mean Corpuscular 31.6 L Hemoglobin Concen t Red Cell 13.2 Distribution Width Platelet Count 239 Mean Platelet 12.5 H Volume Immature 0.500 H Granulocytes % Neutrophils % 55.4 Lymphocytes % 36.2 Monocytes % 5.5 Eosinophils % 1.4 Basophils % 1.0 Nucleated Red 0.0 Blood Cells % Immature 0.070 H Granulocytes # Neutrophils # 8.0 H Lymphocytes # 5.3 H Monocytes # 0.8 Eosinophils # 0.2 Basophils # 0.2 H Nucleated Red 0.0 Blood Cells # Prothrombin Time 12.8 Prothrombin Time 1.0 Ratio INR International 0.95 Normalized Ratio Activated 23.0 Partial Thrombopl ast Time Sodium Level 141 Potassium Level 5.1 Chloride Level 106 Carbon Dioxide 20 L Level Anion Gap 15 H Blood Urea 25 H Nitrogen Creatinine 1.47 H Est Glomerular 48 L Filtrat Rate mL/min Glucose Level 435 *H Calcium Level 9.7 Phosphorus Level 5.3 H Magnesium Level 1.9 Total Bilirubin 0.3 Direct Bilirubin 0.00 Indirect 0.3 Bilirubin Aspartate Amino 46 Transf (AST/SGOT) Alanine 38 Aminotransferase (ALT/SGPT) Alkaline 150 H Phosphatase Troponin I 0.069 Total Protein 7.9 Albumin 4.5 Globulin 3.40 H Albumin/Globulin 1.32 Ratio Ethyl Alcohol < 10.0 H Level Blood Gas Blood arterial Specimen Source Arterial Blood 09/01/2018 5:00:4 Date Drawn 2 AM Arterial Blood pH 7.358 (Temp corrected) Arterial Blood 37.5 pCO2 (Temp correct) Arterial Blood 131.2 H pO2 (Temp corrected) Arterial Blood 20.6 L HCO3 Arterial Blood -4.3 L Base Excess Arterial Blood 97.9 Oxygen Saturation Dejon Test ACCEPTAB Arterial Blood Right Radial Gas Puncture Site Arterial 0.3 Blood Carboxyhemo globin Arterial Blood 0.2 Methemoglobin Blood Gas A-a O2 544.3 H Differential Oxyhemoglobin 97.4 Percent Blood Gas 37.0 Temperature Blood Gas 18.0 Respiration Rate Blood Gas Actual 24 Respiration Rate Blood Gas VENT - AC Modality FiO2 100.0 Blood Gas Tidal 500.0 Volume Blood Gas Low 5.0 PEEP Setting Blood Gas 29.0 Inspiratory Pressure Blood Gas LW Notified Whom Blood Gas 09/01/2018 5:07:4 Notified Time 2 AM Bedside Glucose 453 *H Lactic Acid Level 2.1 *H Salicylates Level 2.5 L Acetaminophen < 10.0 L Level Test 09/01/18 08:14 09/01/18 09:42 09/01/18 10:04 09/01/18 10:29 Bedside Glucose 439 *H 361 H 343 H Lactic Acid Level 2.9 *H Creatine Kinase 413 H Creatine Kinase 6.7 Index Creatinine Kinase 27.80 H MB (Mass) Troponin I 6.360 *H Test 09/01/18 11:47 Bedside Glucose 311 H Medications Medication Current Medications Fentanyl (Sublimaze) 25 mcg Q10M PRN IV SEDATION Last administered on 09/01/18at 04:38; Admin Dose 25 MCG; Start 09/01/18 at 04:00 Propofol 100 ml @ 2.1 mls/hr ONCE STAT IV Last administered on 09/01/18at 04:10; Admin Dose 2.1 MLS/HR; Start 09/01/18 at 03:54; Stop 09/03/18 at 03:31 Vecuronium Waterflow 100 mg/ Dextrose 100 ml @ 4.2 mls/hr [id number] ONCE IV ; Start 09/01/18 at 03:54; Stop 09/02/18 at 03:42 Norepinephrine 250 ml @ 7.5 mls/hr PER PROTOCOL ONCE IV Last administered on 09/01/18at 04:30; Admin Dose 7.5 MLS/HR; Start 09/01/18 at 04:30; Stop 09/02/18 at 13:49 Propofol 100 ml @ 2.1 mls/hr ONCE STAT IV ; Start 09/01/18 at 04:25; Stop 09/03/18 at 04:02 Fentanyl 100 ml @ 2.5 mls/hr TITRATE ONCE IV Last administered on 09/01/18at 04:42; Admin Dose 2.5 MLS/HR; Start 09/01/18 at 04:30; Stop 09/02/18 at 20:29 Dextrose/Sodium Chloride 1,000 ml @ 100 mls/hr Q10H IV ; Start 09/01/18 at 05:27 Ondansetron HCl (Zofran Inj) 4 mg Q6H PRN IV NAUSEA AND/OR VOMITING; Start 09/01/18 at 05:30 Albuterol (Ventolin Hfa) 4 puff Q2H RESP THERAPY PRN INH SHORTNESS OF BREATH; Start 09/01/18 at 05:30 Ipratropium Waterflow (Atrovent Hfa) 4 puff Q2H RESP THERAPY PRN INH SHORTNESS OF BREATH; Start 09/01/18 at 05:30 Acetaminophen (Tylenol Supp) 650 mg Q4H PRN [place] PAIN LEVEL 1-3 OR FEVER; Start 09/01/18 at 05:30 Heparin Sodium (Porcine) (Heparin (5000 Units/1ml)) 5,000 unit Q12 SC Last administered on 09/01/18at 09:47; Admin Dose 5,000 UNIT; Start 09/01/18 at 09:00 Diagnostic Test (Pha) (Accu-Chek) 1 ea Q1H XX Last administered on 09/01/18at 11:41; Admin Dose 1 EA; Start 09/01/18 at 05:30 Miscellaneous Information (* Miscellaneous Pharmacy Order) Treatment of Hypog lycemia: 1.BG 51... Per protocol XX ; Start 09/01/18 at 05:30 Dextrose (D50w Syringe) 25 ml Q15M PRN IV .DECREASED GLUCOSE; Start 09/01/18 at 05:30 Dextrose (D50w Syringe) 50 ml Q15M PRN IV .DECREASED GLUCOSE; Start 09/01/18 at 05:30 Piperacillin Sod/ Tazobactam Sod 100 ml @ 200 mls/hr Q6 IVPB Last administered on 09/01/18at 11:44; Admin Dose 200 MLS/HR; Start 09/01/18 at 05:30 Vancomycin HCl (Vanco Iv Per Pharmacy) VANCOMYCIN PER PHARMACY PER PROTOCOL XX ; Start 09/01/18 at 05:30 Famotidine (Pepcid Iv) 20 mg DAILY@0600 IV Last administered on 09/01/18at 11:57; Admin Dose 20 MG; Start 09/01/18 at 06:00 Vancomycin HCl 250 ml @ 125 mls/hr Q24H IVPB ; Start 09/02/18 at 08:00 Aspirin (Ecotrin) 325 mg DAILY PO ; Start 09/01/18 at 09:00 Atorvastatin Calcium (Lipitor) 20 mg HS PO ; Start 09/01/18 at 21:00 Diagnostic Test (Pha) (Accu-Chek) 1 ea Q1H XX Last administered on 09/01/18at 11:45; Admin Dose 1 EA; Start 09/01/18 at 07:30 Insulin Human Regular 100 unit/ Sodium Chloride 100 ml @ 0 mls/hr PER PROTOCOL IV ; Start 09/01/18 at 07:30 Miscellaneous Information (* Miscellaneous Pharmacy Order) Treatment of Hypoglycemia: 1.BG 51... Per protocol XX ; Start 09/01/18 at 07:30 Dextrose (D50w Syringe) 25 ml Q15M PRN IV .DECREASED GLUCOSE; Start 09/01/18 at 07:30 Dextrose (D50w Syringe) 50 ml Q15M PRN IV .DECREASED GLUCOSE; Start 09/01/18 at 07:30 Vancomycin HCl 1.5 gm/Sodium Chloride 250 ml @ 83.333 mls/ hr Q24H IVPB Last administered on 09/01/18at 09:32; Admin Dose 83.333 MLS/HR; Start 09/01/18 at 08:00 Heparin Sodium (Porcine) (Heparin (1000 Units/ml)) 4,000 unit PER PROTOCOL PRN IV aPTT<47; Start 09/01/18 at 12:00 Eye Lubricant (Refresh Plus) 2 drop ONCE BOTH EYES ; Start 09/01/18 at 12:30; Stop 09/01/18 at 12:31 Norepinephrine 250 ml @ 1.875 mls/ hr TITRATE IV Last administered on 09/01/18at 12:18; Admin Dose 15 MLS/HR; Start 09/01/18 at 12:30 Propofol 100 ml @ 2.1 mls/hr Q12H IV ; Start 09/01/18 at 12:30 SAMIR LEAL MD September 01, 2018 12:36
[2018-09-01] MEDS: PROPOFOL 100 ML IV SCH ×2 (13:01→21:37)
--- NOTE | 2018-09-01 13:03 | PN ---
Date/Time of Note Date/Time of Note DATE: 09/01/18 TIME: 13:03 Assessment/Plan VTE Prophylaxis Pharmacological prophylaxis: heparin Assessment/Plan Hospital Course 1. Cardiopulmonary arrest: Likely secondary to aspiration -Patient took multiple [place] for an upset stomach and shortly after he vomited and was forming. He was brought to the ER for respiratory distress. He had arrested in the ER shortly after, status post CPR/ACLS with ROSC. -Cards and Pulm consults, likely Heart Cath in the coming days -Continue vent support -Cont Pressors -Broad-spectrum IV antibiotic -Culture of pulmonary aspirate -2D echo -Chest CT as needed 2. NSTEMI -Cards consultation appreciated, Cath in the coming days -Heparin gtt 3. Type 2 diabetes with hyperglycemia: No DKA -Patient with a history of noncompliance and his last A1c was 12 -Insulin drip 4. History of CVA in 2013: Continue aspirin and statin when able, currently on Heparin gtt 5. Hypertension: Hold BP meds for now 5. Dyslipidemia statin PPx: Heparin DC planning: Pt is critical Result Diagram: 09/01/18 0330 09/01/18 0330 Results 24hrs Laboratory Tests Test 09/01/18 03:30 09/01/18 04:19 09/01/18 07:14 09/01/18 07:16 White Blood Count 14.5 H Red Blood Count 4.62 L Hemoglobin 14.2 Hematocrit 45.0 Mean Corpuscular 97.4 Volume Mean Corpuscular 30.7 Hemoglobin Mean Corpuscular 31.6 L Hemoglobin Concen t Red Cell 13.2 Distribution Width Platelet Count 239 Mean Platelet 12.5 H Volume Immature 0.500 H Granulocytes % Neutrophils % 55.4 Lymphocytes % 36.2 Monocytes % 5.5 Eosinophils % 1.4 Basophils % 1.0 Nucleated Red 0.0 Blood Cells % Immature 0.070 H Granulocytes # Neutrophils # 8.0 H Lymphocytes # 5.3 H Monocytes # 0.8 Eosinophils # 0.2 Basophils # 0.2 H Nucleated Red 0.0 Blood Cells # Prothrombin Time 12.8 Prothrombin Time 1.0 Ratio INR International 0.95 Normalized Ratio Activated 23.0 Partial Thrombopl ast Time Sodium Level 141 Potassium Level 5.1 Chloride Level 106 Carbon Dioxide 20 L Level Anion Gap 15 H Blood Urea 25 H Nitrogen Creatinine 1.47 H Est Glomerular 48 L Filtrat Rate mL/min Glucose Level 435 *H Calcium Level 9.7 Phosphorus Level 5.3 H Magnesium Level 1.9 Total Bilirubin 0.3 Direct Bilirubin 0.00 Indirect 0.3 Bilirubin Aspartate Amino 46 Transf (AST/SGOT) Alanine 38 Aminotransferase (ALT/SGPT) Alkaline 150 H Phosphatase Troponin I 0.069 Total Protein 7.9 Albumin 4.5 Globulin 3.40 H Albumin/Globulin 1.32 Ratio Ethyl Alcohol < 10.0 H Level Blood Gas Blood arterial Specimen Source Arterial Blood 09/01/2018 5:00:4 Date Drawn 2 AM Arterial Blood pH 7.358 (Temp corrected) Arterial Blood 37.5 pCO2 (Temp correct) Arterial Blood 131.2 H pO2 (Temp corrected) Arterial Blood 20.6 L HCO3 Arterial Blood -4.3 L Base Excess Arterial Blood 97.9 Oxygen Saturation Dejon Test ACCEPTAB Arterial Blood Right Radial Gas Puncture Site Arterial 0.3 Blood Carboxyhemo globin Arterial Blood 0.2 Methemoglobin Blood Gas A-a O2 544.3 H Differential Oxyhemoglobin 97.4 Percent Blood Gas 37.0 Temperature Blood Gas 18.0 Respiration Rate Blood Gas Actual 24 Respiration Rate Blood Gas VENT - AC Modality FiO2 100.0 Blood Gas Tidal 500.0 Volume Blood Gas Low 5.0 PEEP Setting Blood Gas 29.0 Inspiratory Pressure Blood Gas LW Notified Whom Blood Gas 09/01/2018 5:07:4 Notified Time 2 AM Bedside Glucose 453 *H Lactic Acid Level 2.1 *H Salicylates Level 2.5 L Acetaminophen < 10.0 L Level Test 09/01/18 08:14 09/01/18 09:42 09/01/18 10:04 09/01/18 10:29 Bedside Glucose 439 *H 361 H 343 H Lactic Acid Level 2.9 *H Creatine Kinase 413 H Creatine Kinase 6.7 Index Creatinine Kinase 27.80 H MB (Mass) Troponin I 6.360 *H Test 09/01/18 11:47 Bedside Glucose 311 H Subjective 24 Hr Interval Summary Subjective hx not possible: pt non-verbal Exam/Review of Systems Exam Vitals Vital Signs Date Temp Pulse Resp B/P (MAP) Pulse Ox O2 O2 Flow FiO2 Time Delivery Rate 09/01/18 70 19 100 75 11:05 09/01/18 95/69 (78) Mechanical 11:00 Ventilator 09/01/18 98.6 09:30 09/01/18 10.0 08:45 Constitutional: non-verbal ENMT: intubated Respiratory: clear to auscultation Cardiovascular: regular rate and rhythm Gastrointestinal: soft; No distended Musculoskeletal: nl extremities to inspection Results Results 24hrs Laboratory Tests Test 09/01/18 03:30 09/01/18 04:19 09/01/18 07:14 09/01/18 07:16 White Blood Count 14.5 H Red Blood Count 4.62 L Hemoglobin 14.2 Hematocrit 45.0 Mean Corpuscular 97.4 Volume Mean Corpuscular 30.7 Hemoglobin Mean Corpuscular 31.6 L Hemoglobin Concen t Red Cell 13.2 Distribution Width Platelet Count 239 Mean Platelet 12.5 H Volume Immature 0.500 H Granulocytes % Neutrophils % 55.4 Lymphocytes % 36.2 Monocytes % 5.5 Eosinophils % 1.4 Basophils % 1.0 Nucleated Red 0.0 Blood Cells % Immature 0.070 H Granulocytes # Neutrophils # 8.0 H Lymphocytes # 5.3 H Monocytes # 0.8 Eosinophils # 0.2 Basophils # 0.2 H Nucleated Red 0.0 Blood Cells # Prothrombin Time 12.8 Prothrombin Time 1.0 Ratio INR International 0.95 Normalized Ratio Activated 23.0 Partial Thrombopl ast Time Sodium Level 141 Potassium Level 5.1 Chloride Level 106 Carbon Dioxide 20 L Level Anion Gap 15 H Blood Urea 25 H Nitrogen Creatinine 1.47 H Est Glomerular 48 L Filtrat Rate mL/min Glucose Level 435 *H Calcium Level 9.7 Phosphorus Level 5.3 H Magnesium Level 1.9 Total Bilirubin 0.3 Direct Bilirubin 0.00 Indirect 0.3 Bilirubin Aspartate Amino 46 Transf (AST/SGOT) Alanine 38 Aminotransferase (ALT/SGPT) Alkaline 150 H Phosphatase Troponin I 0.069 Total Protein 7.9 Albumin 4.5 Globulin 3.40 H Albumin/Globulin 1.32 Ratio Ethyl Alcohol < 10.0 H Level Blood Gas Blood arterial Specimen Source Arterial Blood 09/01/2018 5:00:4 Date Drawn 2 AM Arterial Blood pH 7.358 (Temp corrected) Arterial Blood 37.5 pCO2 (Temp correct) Arterial Blood 131.2 H pO2 (Temp corrected) Arterial Blood 20.6 L HCO3 Arterial Blood -4.3 L Base Excess Arterial Blood 97.9 Oxygen Saturation Dejon Test ACCEPTAB Arterial Blood Right Radial Gas Puncture Site Arterial 0.3 Blood Carboxyhemo globin Arterial Blood 0.2 Methemoglobin Blood Gas A-a O2 544.3 H Differential Oxyhemoglobin 97.4 Percent Blood Gas 37.0 Temperature Blood Gas 18.0 Respiration Rate Blood Gas Actual 24 Respiration Rate Blood Gas VENT - AC Modality FiO2 100.0 Blood Gas Tidal 500.0 Volume Blood Gas Low 5.0 PEEP Setting Blood Gas 29.0 Inspiratory Pressure Blood Gas LW Notified Whom Blood Gas 09/01/2018 5:07:4 Notified Time 2 AM Bedside Glucose 453 *H Lactic Acid Level 2.1 *H Salicylates Level 2.5 L Acetaminophen < 10.0 L Level Test 09/01/18 08:14 09/01/18 09:42 09/01/18 10:04 09/01/18 10:29 Bedside Glucose 439 *H 361 H 343 H Lactic Acid Level 2.9 *H Creatine Kinase 413 H Creatine Kinase 6.7 Index Creatinine Kinase 27.80 H MB (Mass) Troponin I 6.360 *H Test 09/01/18 11:47 Bedside Glucose 311 H Medications Medication Current Medications Fentanyl (Sublimaze) 25 mcg Q10M PRN IV SEDATION Last administered on 09/01/18at 04:38; Admin Dose 25 MCG; Start 09/01/18 at 04:00 Propofol 100 ml @ 2.1 mls/hr ONCE STAT IV Last administered on 09/01/18at 04:10; Admin Dose 2.1 MLS/HR; Start 09/01/18 at 03:54; Stop 09/03/18 at 03:31 Vecuronium [place] 100 mg/ Dextrose 100 ml @ 4.2 mls/hr [id number] ONCE IV ; Start 09/01/18 at 03:54; Stop 09/02/18 at 03:42 Norepinephrine 250 ml @ 7.5 mls/hr PER PROTOCOL ONCE IV Last administered on 09/01/18at 04:30; Admin Dose 7.5 MLS/HR; Start 09/01/18 at 04:30; Stop 09/02/18 at 13:49 Propofol 100 ml @ 2.1 mls/hr ONCE STAT IV ; Start 09/01/18 at 04:25; Stop 09/03/18 at 04:02 Fentanyl 100 ml @ 2.5 mls/hr TITRATE ONCE IV Last administered on 09/01/18at 04:42; Admin Dose 2.5 MLS/HR; Start 09/01/18 at 04:30; Stop 09/02/18 at 20:29 Ondansetron HCl (Zofran Inj) 4 mg Q6H PRN IV NAUSEA AND/OR VOMITING; Start 09/01/18 at 05:30 Albuterol (Ventolin Hfa) 4 puff Q2H RESP THERAPY PRN INH SHORTNESS OF BREATH; Start 09/01/18 at 05:30 Ipratropium [place] (Atrovent Hfa) 4 puff Q2H RESP THERAPY PRN INH SHORTNESS OF BREATH; Start 09/01/18 at 05:30 Acetaminophen (Tylenol Supp) 650 mg Q4H PRN [place] PAIN LEVEL 1-3 OR FEVER; Start 09/01/18 at 05:30 Heparin Sodium (Porcine) (Heparin (5000 Units/1ml)) 5,000 unit Q12 SC Last administered on 09/01/18at 09:47; Admin Dose 5,000 UNIT; Start 09/01/18 at 09:00 Diagnostic Test (Pha) (Accu-Chek) 1 ea Q1H XX Last administered on 09/01/18at 12:47; Admin Dose 1 EA; Start 09/01/18 at 05:30 Miscellaneous Information (* Miscellaneous Pharmacy Order) Treatment of Hypoglycemia: 1.BG 51... Per protocol XX ; Start 09/01/18 at 05:30 Dextrose (D50w Syringe) 25 ml Q15M PRN IV .DECREASED GLUCOSE; Start 09/01/18 at 05:30 Dextrose (D50w Syringe) 50 ml Q15M PRN IV .DECREASED GLUCOSE; Start 09/01/18 at 05:30 Piperacillin Sod/ Tazobactam Sod 100 ml @ 200 mls/hr Q6 IVPB Last administered on 09/01/18at 11:44; Admin Dose 200 MLS/HR; Start 09/01/18 at 05:30 Vancomycin HCl (Vanco Iv Per Pharmacy) VANCOMYCIN PER PHARMACY PER PROTOCOL XX ; Start 09/01/18 at 05:30 Famotidine (Pepcid Iv) 20 mg DAILY@0600 IV Last administered on 09/01/18at 11:57; Admin Dose 20 MG; Start 09/01/18 at 06:00 Vancomycin HCl 250 ml @ 125 mls/hr Q24H IVPB ; Start 09/02/18 at 08:00 Aspirin (Ecotrin) 325 mg DAILY PO ; Start 09/01/18 at 09:00 Atorvastatin Calcium (Lipitor) 20 mg HS PO ; Start 09/01/18 at 21:00 Diagnostic Test (Pha) (Accu-Chek) 1 ea Q1H XX Last administered on 09/01/18at 12:47; Admin Dose 1 EA; Start 09/01/18 at 07:30 Insulin Human Regular 100 unit/ Sodium Chloride 100 ml @ 0 mls/hr PER PROTOCOL IV ; Start 09/01/18 at 07:30 Miscellaneous Information (* Miscellaneous Pharmacy Order) Treatment of Hypoglycemia: 1.BG 51... Per protocol XX ; Start 09/01/18 at 07:30 Dextrose (D50w Syringe) 25 ml Q15M PRN IV .DECREASED GLUCOSE; Start 09/01/18 at 07:30 Dextrose (D50w Syringe) 50 ml Q15M PRN IV .DECREASED GLUCOSE; Start 09/01/18 at 07:30 Vancomycin HCl 1.5 gm/Sodium Chloride 250 ml @ 83.333 mls/ hr Q24H IVPB Last administered on 09/01/18at 09:32; Admin Dose 83.333 MLS/HR; Start 09/01/18 at 08:00 Heparin Sodium (Porcine) (Heparin (1000 Units/ml)) 4,000 unit PER PROTOCOL PRN IV aPTT<47; Start 09/01/18 at 12:00 Norepinephrine 250 ml @ 1.875 mls/ hr TITRATE IV Last administered on 09/01/18at 12:18; Admin Dose 15 MLS/HR; Start 09/01/18 at 12:30 Propofol 100 ml @ 2.1 mls/hr Q12H IV Last administered on 09/01/18at 13:01; Admin Dose 12.6 MLS/HR; Start 09/01/18 at 12:30 RONNI NUNEZ September 01, 2018 13:03
[2018-09-01] MEDS ORDERED: HEPARIN 25000 UNITS/250 ML 250 ML IV SCH (13:30)
[2018-09-01] MEDS: SOD CHLORIDE 0.9% 1,000 ML IV SCH (13:30)
[2018-09-01] MEDS ORDERED: HEPARIN 1000 UNITS/ML 10 ML INJ IV ONE (13:30)
[2018-09-01] MEDS ORDERED: FENTAnyl (DRIP) 1000 mcg/100mL 100 ML IV SCH (15:30)
[2018-09-01] MEDS ORDERED: LIDOCAINE 1% (MDV) 20 ML INJ ONE (17:26)
--- NOTE | 2018-09-01 19:04 | OPR ---
Date/Time of Note Date/Time of Note DATE: 09/01/18 TIME: 18:57 Operative Report Procedure Date: September 01, 2018 Preoperative Diagnosis Non-ST elevation myocardial infarction Postoperative Diagnosis Same Operation/Procedure Performed [facility] Surgeon see signature line Rnfa Talon Anesthesia Type: other Estimated Blood Loss: minimal Transfusion none Specimen NONE Grafts/Implants none Complications none Procedure Description Procedure performed: 1. Left heart catheterization, selective right and left coronary angiogram 2. right femoral angiogram 3. Right heart catheterization Pcb Designer: Kay Aragon MD Indication:: 67-year-old gentleman who presented with non-ST elevation roz cardial infarction, respiratory failure,. Patient also noted to have aortic stenosis on the echo Findin. Left main coronary artery: Is large with about 60% distal stenosis. 2. Left anterior descending artery: Its a moderate size vessel and goes around the apex. It has 60 % stenosis proximally, and 99 % stenosis of the mid LAD. 3. Left circumflex artery: Is nondominant. It has 50 % stenosis maximally. Obtuse marginal 1 is a moderate size vessel with about 80% ostial stenosis. Obtuse marginal 2 also has another 95% stenosis at the proximal OM. 4. Right coronary artery: Is a large and dominant vessel. It has 100% stenosis maximally consistent with chronic total occlusion. There is a large right to right collaterals noted 5. LV pressure: 130/22; Aortic pressure by pull back is 111/57. gradient was about 20 mmHg By simultaneous pressure measurements of the left ventricle and femoral artery: LV pressure was 128/20 1 aortic pressure was 111/51. Mean gradient was 21 Right heart catheterization as follows: RA mean pressure is 13 RV pressure is 38/9 PA pressure is 35/19 Pulmonary artery wedge pressure is 22 Cardiac output was 6.3 Calculated aortic valve area was Written informed consent with obtained after risks benefits and alternatives discussed with the patient and multiple daughters in detail. risks including but not limited to risk of infection vascular complications, bleeding complications, [place] stroke arrhythmia renal failure at even were discussed with the patient in detail. Patient was brought into the cardiac collaborating supervising physician and placed in supine position. Right and left groin area was prepped and draped in regular sterile fashion and then he was in anesthetized using 1% lidocaine. Right femoral artery was cannulated and using modified seldinger technique a 5 [place] sheath was placed in the right femoral artery. Right femoral angiogram was performed. Changed to a longer 6 [place] sheath. JL4 catheter was advanced and engaged into the left main coronary artery and angiographic view was obtained. The JR4 catheter was advanced and engaged right coronary artery angiographic view was obtained. 5 [place] pigtail was advanced to engage the left ventricle hemodynamics using simultaneous pressure in the femoral artery and left ventricle were recorded. aortic pressure Was recorded by pullback aortic pressure was measured This time we decided to do right heart catheterization as well to further evaluate aortic stenosis. Right femoral vein was cannulated using modified Seldinger technique a 7 pressure patient abdominal pain. PA catheter was advanced into the right atrium right ventricle PA pressure 10 pulmonary artery wedge pressure hemodynamics were recorded. He was pulled back into the pulmonary artery and cardiac output was measured. Cardiac Glidewire were removed. Patient tolerated procedure well with no complication. Patient is to be transferred to recovery room in stable condition. contrast used: Less than 30 cc Conclusions: Severe multivessel coronary artery disease including left main coronary artery disease At least moderate aortic stenosis Recommendations: CT surgery has been consulted. to evaluate the patient for possible coronary bypass graft and aortic valve replacement KAY ARAGON MD September 01, 2018 19:04
[2018-09-01] MEDS ORDERED: SUCCINYLCHOLINE CHLORIDE 100 MG/5 ML SYG IV ONE (21:00)
[2018-09-01] MEDS ORDERED: DEXTROSE 50% 50 ML SYRINGE ONE (21:00)
[2018-09-01] MEDS ORDERED: EPINEPHrine 10 MCG/1ml (10 ML SYG) IV ONE (21:00)
[2018-09-01] MEDS ORDERED: CA CHLORIDE 10% 10 ML SYRINGE ONE (21:00)
[2018-09-01] MEDS: ATORVASTATIN 20 MG TAB PO SCH (21:34)
[2018-09-02] VITALS (93 sets, daily range): BP systolic 71–162; BP diastolic 43–98; PULSE 64–102; RESP 10–65; Ht 182.9 cm; Wt 81.8 kg
[2018-09-02] MEDS: PROPOFOL 100 ML IV SCH (00:03)
[2018-09-02] MEDS: NORepinephrine 8MG/250 ML (PMX 250 ML IV SCH (00:03)
[2018-09-02] MEDS: ACCU-CHEK XX SCH ×21 (00:17→16:23)
[2018-09-02] MEDS: SOD CHLORIDE 0.9% 1,000 ML IV SCH ×2 (00:17→09:09)
[2018-09-02] MEDS: PIPER-TAZO 3.375 GM IV (PMX) 100 ML IVPB SCH ×5 (00:17→23:56)
[2018-09-02] MEDS: FAMOTIDINE 20 MG INJ IV SCH (05:01)
[2018-09-02] MEDS ORDERED: VANCOMYCIN 1 GM 250 ML IVPB SCH (08:00)
[2018-09-02] MEDS: ASPIRIN (EC) 325 MG TAB PO SCH (08:57)
--- NOTE | 2018-09-02 11:07 | CONS ---
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 Acute renal failure Non-ST elevation [place] Plan This patient is a too high risk to undergo surgery at the present time Would continue medical management Possible transfer to a higher level of care Consultation Date/Type/Reason Admit Date/Time Date of Consultation: September 02, 2018 Type of Consult Cardiothoracic surgery Reason for Consultation Coronary artery bypass grafting Date/Time of Note DATE: 09/02/18 TIME: 10:59 Hx of Present Illness This is an 67-year-old male with a history of prior CVA in 2013 also has a history of hypertension diabetes dyslipidemia patient was admitted because of abdominal pain shortness of breath initial troponins were negative however they got up to 6 patient underwent coronary angiogram Cath findings 1. Left main coronary artery: Is large with about 60% distal stenosis. 2. Left anterior descending artery: Its a moderate size vessel and goes around the apex. It has 60 % stenosis proximally, and 99 % stenosis of the mid LAD. 3. Left circumflex artery: Is nondominant. It has 50 % stenosis maximally. Obtuse marginal 1 is a moderate size vessel with about 80% ostial stenosis. Obtuse marginal 2 also has another 95% stenosis at the proximal OM. 4. Right coronary artery: Is a large and dominant vessel. It has 100% stenosis maximally consistent with chronic total occlusion. There is a large right to right collaterals noted 5. LV pressure: 130/22; Aortic pressure by pull back is 111/57. gradient was about 20 mmHg By simultaneous pressure measurements of the left ventricle and femoral artery: LV pressure was 128/20 1 aortic pressure was 111/51. Mean gradient was 21 Patient is currently intubated requiring Levophed drip he also had to receive CPR upon admission ENT: no complaints Respiratory: no complaints Cardiovascular: no complaints Gastrointestinal: no complaints Genitourinary: no complaints Musculoskeletal: no complaints Skin: no complaints Neurologic: no complaints Endocrine: no complaints Past Medical History Medical History: diabetes, high cholesterol, hypertension Home Meds Active Scripts Metformin* (Glucophage*) 500 Mg Tab, 500 MG PO BID, #60 TAB Prov:BRONWYN OVALLE 12/23/13 Lisinopril* (Lisinopril*) 10 Mg Tablet, 10 MG PO DAILY, #30 TAB Prov:BRONWYN OVALLE S. 12/23/13 Atorvastatin Calcium* (Atorvastatin Calcium*) 20 Mg Tab, 20 MG PO HS, #30 Prov:BRONWYN OVALLE S. 12/23/13 Insulin Glargine* (Lantus*) 100 Unit/Ml Soln, 22 UNIT SC HS for 30 Days Prov:BRONWYN OVALLE S. 12/23/13 Aspirin* (Ecotrin*) 325 Mg Tabec, 325 MG PO DAILY, #30 Prov:BRONWYN OVALLE S. 12/23/13 Medications Current Medications Fentanyl (Sublimaze) 25 mcg Q10M PRN IV SEDATION Last administered on 09/01/18at 04:38; Admin Dose 25 MCG; Start 09/01/18 at 04:00 Propofol 100 ml @ 2.1 mls/hr ONCE STAT IV Last administered on 09/01/18at 04:10; Admin Dose 2.1 MLS/HR; Start 09/01/18 at 03:54; Stop 09/03/18 at 03:31 Norepinephrine 250 ml @ 7.5 mls/hr PER PROTOCOL ONCE IV Last administered on 09/01/18at 04:30; Admin Dose 7.5 MLS/HR; Start 09/01/18 at 04:30; Stop 09/02/18 at 13:49 Propofol 100 ml @ 2.1 mls/hr ONCE STAT IV ; Start 09/01/18 at 04:25; Stop 09/03/18 at 04:02 Fentanyl 100 ml @ 2.5 mls/hr TITRATE ONCE IV Last administered on 09/01/18at 0 4:42; Admin Dose 2.5 MLS/HR; Start 09/01/18 at 04:30; Stop 09/02/18 at 20:29 Ondansetron HCl (Zofran Inj) 4 mg Q6H PRN IV NAUSEA AND/OR VOMITING; Start 09/01/18 at 05:30 Albuterol (Ventolin Hfa) 4 puff Q2H RESP THERAPY PRN INH SHORTNESS OF BREATH; Start 09/01/18 at 05:30 Ipratropium [place] (Atrovent Hfa) 4 puff Q2H RESP THERAPY PRN INH SHORTNESS OF BREATH; Start 09/01/18 at 05:30 Acetaminophen (Tylenol Supp) 650 mg Q4H PRN [place] PAIN LEVEL 1-3 OR FEVER; Start 09/01/18 at 05:30 Diagnostic Test (Pha) (Accu-Chek) 1 ea Q1H XX Last administered on 09/02/18 08:59; Admin Dose 1 EA; Start 09/01/18 at 05:30 Miscellaneous Information (* Miscellaneous Pharmacy Order) Treatment of Hypoglycemia: 1.BG 51... Per protocol XX ; Start 09/01/18 at 05:30 Dextrose (D50w Syringe) 25 ml Q15M PRN IV .DECREASED GLUCOSE Last administered on 09/02/18 04:45; Admin Dose 25 ML; Start 09/01/18 at 05:30 Dextrose (D50w Syringe) 50 ml Q15M PRN IV .DECREASED GLUCOSE; Start 09/01/18 at 05:30 Piperacillin Sod/ Tazobactam Sod 100 ml @ 200 mls/hr Q6 IVPB Last administered on 09/02/18 05:01; Admin Dose 200 MLS/HR; Start 09/01/18 at 05:30 Vancomycin HCl (Vanco Iv Per Pharmacy) VANCOMYCIN PER PHARMACY PER PROTOCOL XX ; Start 09/01/18 at 05:30 Famotidine (Pepcid Iv) 20 mg DAILY@0600 IV Last administered on 09/02/18 05:01; Admin Dose 20 MG; Start 09/01/18 at 06:00 Vancomycin HCl 250 ml @ 125 mls/hr Q24H IVPB Last administered on 09/02/18 08:59; Admin Dose 125 MLS/HR; Start 09/02/18 at 08:00 Aspirin (Ecotrin) 325 mg DAILY PO Last administered on 09/02/18 08:57; Admin Dose 325 MG; Start 09/01/18 at 09:00 Atorvastatin Calcium (Lipitor) 20 mg HS PO Last administered on 09/01/18 21:34; Admin Dose 20 MG; Start 09/01/18 at 21:00 Insulin Human Regular 100 unit/ Sodium Chloride 100 ml @ 0 mls/hr PER PROTOCOL IV Last administered on 09/02/18 07:33; Admin Dose 1.5 MLS/HR; Start 09/01/18 at 07:30 Miscellaneous Information (* Miscellaneous Pharmacy Order) Treatment of Hypoglycemia: 1.BG 51... Per protocol XX ; Start 09/01/18 at 07:30 Dextrose (D50w Syringe) 25 ml Q15M PRN IV .DECREASED GLUCOSE; Start 09/01/18 at 07:30 Dextrose (D50w Syringe) 50 ml Q15M PRN IV .DECREASED GLUCOSE; Start 09/01/18 at 07:30 Vancomycin HCl 1.5 gm/Sodium Chloride 250 ml @ 83.333 mls/ hr Q24H IVPB Last administered on 09/01/18at 09:32; Admin Dose 83.333 MLS/HR; Start 09/01/18 at 08:00 Heparin Sodium (Porcine) (Heparin (1000 Units/ml)) 4,000 unit PER PROTOCOL PRN IV aPTT<47 Last administered on 09/01/18at 21:59; Admin Dose 4,000 UNIT; Start 09/01/18 at 12:00 Norepinephrine 250 ml @ 1.875 mls/ hr TITRATE IV Last administered on 09/02/18at 00:03; Admin Dose 20.625 MLS/HR; Start 09/01/18 at 12:30 Propofol 100 ml @ 2.1 mls/hr Q12H IV Last administered on 09/02/18at 00:03; Admin Dose 2.52 MLS/HR; Start 09/01/18 at 12:30 Sodium Chloride 1,000 ml @ 100 mls/hr Q10H IV Last administered on 09/02/18at 09:09; Admin Dose 100 MLS/HR; Start 09/01/18 at 13:30 Heparin Sodium (Porcine) (Heparin (1000 Units/ml)) 4,000 unit PER PROTOCOL PRN IV aPTT<47; Start 09/01/18 at 13:30 Heparin Sodium (Porcine) 250 ml @ 8.5 mls/hr PER PROTOCOL IV Last administered on 09/01/18at 13:52; Admin Dose 8.5 MLS/HR; Start 09/01/18 at 13:30 Fentanyl 100 ml @ 2.5 mls/hr TITRATE IV Last administered on 09/02/18at 05:10; Admin Dose 10 MLS/HR; Start 09/01/18 at 15:30 Allergies: Coded Allergies: No Known Allergies (Verified Allergy, Unknown, 12/21/13) Social History Alcohol Use: other (unknown ) Smoking Status: Unknown if ever smoked Drug Use: none Exam/Review of Systems Exam Vitals Vital Signs Date Temp Pulse Resp B/P (MAP) Pulse Ox O2 O2 Flow FiO2 Time Delivery Rate 09/02/18 86 08:00 09/02/18 18 122/63 100 06:45 (82) 09/02/18 Mechanical 06:00 Ventilator 09/02/18 40 05:39 09/02/18 98.2 04:00 09/01/18 10.0 08:45 Intake and Output 09/01/18 09/01/18 09/02/18 1515:00 23:00 07:00 IntakeIntake Total 1059.516 ml 1034.05 ml 1282.770 ml OutputOutput Total 125 ml 195 ml 230 ml BalanceBalance 934.516 ml 839.05 ml 1052.770 ml Eyes: nl conjunctiva, EOMI, nl lids, nl sclera, PERRL ENMT: nl external ears & nose, nl lips & teeth, nl nasal mucosa & septum Neck: supple, non-tender Respiratory: clear to auscultation, normal air movement Cardiovascular: regular rate and rhythm, nl pulses Gastrointestinal: soft, nl liver, spleen, non-tender Musculoskeletal: nl extremities to inspection, nl gait and stance Extremities: normal pulses Results Result Diagram: 09/02/18 0340 09/02/18 0340 Results 24hrs Laboratory Tests Test 09/01/18 11:47 09/01/18 12:15 09/01/18 12:47 09/01/18 13:42 Bedside Glucose 311 H 256 H Creatine Kinase 454 H Creatine Kinase 7.4 Index Creatinine 33.70 H Kinase MB (Mass) Troponin I 14.500 *H White Blood 18.1 #H Count Red Blood Count 3.54 #L Hemoglobin 10.9 #L Hematocrit 32.8 #L Mean Corpuscular 92.7 Volume Mean Corpuscular 30.8 Hemoglobin Mean Corpuscular 33.2 Hemoglobin Ban nt Red Cell 13.1 Distribution Width Platelet Count 171 # Mean Platelet 11.5 H Volume Immature 0.500 H Granulocytes % Neutrophils % 87.2 H Lymphocytes % 6.4 L Monocytes % 5.7 Eosinophils % 0.0 Basophils % 0.2 Nucleated Red 0.0 Blood Cells % Immature 0.090 H Granulocytes # Neutrophils # 15.8 H Lymphocytes # 1.2 Monocytes # 1.0 H Eosinophils # 0.0 Basophils # 0.0 Nucleated Red 0.0 Blood Cells # Prothrombin Time 15.3 H Prothrombin Time 1.2 Ratio INR 1.20 International Normalized Ratio Activated 30.8 Partial Thrombop last Time Test 09/01/18 13:59 09/01/18 14:46 09/01/18 16:05 09/01/18 16:54 Bedside Glucose 194 191 125 113 Test 09/01/18 17:57 09/01/18 19:08 09/01/18 19:49 09/01/18 21:22 Blood Gas Blood arterial Specimen Source Arterial Blood 09/01/2018 6:00: Date Drawn 51 PM Arterial Blood 7.395 pH (Temp corrected) Arterial Blood 34.1 L pCO2 (Temp correct) Arterial Blood 110.7 H pO2 (Temp corrected) Arterial Blood 20.4 L HCO3 Arterial Blood -3.7 L Base Excess Arterial Blood 97.5 Oxygen Saturatio n Dejon Test N/A Arterial Blood A-Line Gas Puncture Site Arterial 0.2 Blood Carboxyhem oglobin Arterial Blood 0.1 Methemoglobin Blood Gas A-a O2 423.9 H Differential Oxyhemoglobin 97.2 Percent Blood Gas 37.0 Temperature Blood Gas 18.0 Respiration Rate Blood Gas Actual 18 Respiration Rate Blood Gas VENT - AC Modality FiO2 80.0 Blood Gas Tidal 500.0 Volume Blood Gas Low 5.0 PEEP Setting Blood Gas MDA Notified Whom Blood Gas 09/01/2018 6:03: Notified Time 41 PM Bedside Glucose 144 196 Activated 37.8 H Partial Thrombop last Time Mix PTT Normal Plasma Immediate Test 09/01/18 22:48 09/02/18 00:10 09/02/18 01:39 09/02/18 03:40 Bedside Glucose 181 156 128 White Blood 15.6 H Count Red Blood Count 3.04 L Hemoglobin 10.0 L Hematocrit 29.2 L Mean Corpuscular 96.1 Volume Mean Corpuscular 32.9 Hemoglobin Mean Corpuscular 34.2 Hemoglobin Ban nt Red Cell 13.2 Distribution Width Platelet Count 157 Mean Platelet 11.6 H Volume Immature 0.400 Granulocytes % Neutrophils % 76.2 Lymphocytes % 15.6 Monocytes % 7.2 Eosinophils % 0.1 Basophils % 0.5 Nucleated Red 0.0 Blood Cells % Immature 0.070 H Granulocytes # Neutrophils # 11.9 H Lymphocytes # 2.4 Monocytes # 1.1 H Eosinophils # 0.0 Basophils # 0.1 Nucleated Red 0.0 Blood Cells # Activated 156.5 *H Partial Thrombop last Time Sodium Level 143 Potassium Level 4.3 Chloride Level 112 H Carbon Dioxide 26 Level Anion Gap 5 # Blood Urea 29 H Nitrogen Creatinine 1.34 H Est Glomerular 53 L Filtrat Rate mL/min Glucose Level 73 # Hemoglobin A1c 8.6 H Lactic Acid 1.2 Level Calcium Level 8.3 L Phosphorus Level 3.6 Magnesium Level 1.6 L Triglycerides 44 Level Cholesterol 103 Level LDL Cholesterol, 54 Calculated HDL Cholesterol 40 Cholesterol/HDL 2.5 Ratio Test 09/02/18 04:28 09/02/18 04:53 09/02/18 05:00 09/02/18 05:09 Bedside Glucose 69 L 128 120 Blood Gas Blood arterial Specimen Source Arterial Blood 09/02/2018 5:00: Date Drawn 51 AM Arterial Blood 7.436 pH (Temp corrected) Arterial Blood 31.8 L pCO2 (Temp correct) Arterial Blood 182.9 H pO2 (Temp corrected) Arterial Blood 20.9 L HCO3 Arterial Blood -2.6 Base Excess Arterial Blood 98.6 H Oxygen Saturatio n Dejon Test N/A Arterial Blood A-Line Gas Puncture Site Arterial 0.3 Blood Carboxyhem oglobin Arterial Blood 0.2 Methemoglobin Blood Gas A-a O2 173.9 H Differential Oxyhemoglobin 98.1 Percent Blood Gas 37.0 Temperature Blood Gas 18.0 Respiration Rate Blood Gas Actual 18 Respiration Rate Blood Gas VENT - AC Modality FiO2 55.0 Blood Gas Tidal 500.0 Volume Blood Gas Low 5.0 PEEP Setting Blood Gas UP Notified Whom Blood Gas 09/02/2018 5:08: Notified Time 59 AM Test 09/02/18 06:06 09/02/18 07:28 09/02/18 08:59 Bedside Glucose 119 172 141 Medications Medication Current Medications Fentanyl (Sublimaze) 25 mcg Q10M PRN IV SEDATION Last administered on 09/01/18at 04:38; Admin Dose 25 MCG; Start 09/01/18 at 04:00 Propofol 100 ml @ 2.1 mls/hr ONCE STAT IV Last administered on 09/01/18at 04:10; Admin Dose 2.1 MLS/HR; Start 09/01/18 at 03:54; Stop 09/03/18 at 03:31 Norepinephrine 250 ml @ 7.5 mls/hr PER PROTOCOL ONCE IV Last administered on 09/01/18at 04:30; Admin Dose 7.5 MLS/HR; Start 09/01/18 at 04:30; Stop 09/02/18 at 13:49 Propofol 100 ml @ 2.1 mls/hr ONCE STAT IV ; Start 09/01/18 at 04:25; Stop 09/03/18 at 04:02 Fentanyl 100 ml @ 2.5 mls/hr TITRATE ONCE IV Last administered on 09/01/18at 04:42; Admin Dose 2.5 MLS/HR; Start 09/01/18 at 04:30; Stop 09/02/18 at 20:29 Ondansetron HCl (Zofran Inj) 4 mg Q6H PRN IV NAUSEA AND/OR VOMITING; Start 09/01/18 at 05:30 Albuterol (Ventolin Hfa) 4 puff Q2H RESP THERAPY PRN INH SHORTNESS OF BREATH; Start 09/01/18 at 05:30 Ipratropium [place] (Atrovent Hfa) 4 puff Q2H RESP THERAPY PRN INH SHORTNESS OF BREATH; Start 09/01/18 at 05:30 Acetaminophen (Tylenol Supp) 650 mg Q4H PRN [place] PAIN LEVEL 1-3 OR FEVER; Start 09/01/18 at 05:30 Diagnostic Test (Pha) (Accu-Chek) 1 ea Q1H XX Last administered on 09/02/18at 08:59; Admin Dose 1 EA; Start 09/01/18 at 05:30 Miscellaneous Information (* Miscellaneous Pharmacy Order) Treatment of Hypoglycemia: 1.BG 51... Per protocol XX ; Start 09/01/18 at 05:30 Dextrose (D50w Syringe) 25 ml Q15M PRN IV .DECREASED GLUCOSE Last administered on 09/02/18at 04:45; Admin Dose 25 ML; Start 09/01/18 at 05:30 Dextrose (D50w Syringe) 50 ml Q15M PRN IV .DECREASED GLUCOSE; Start 09/01/18 at 05:30 Piperacillin Sod/ Tazobactam Sod 100 ml @ 200 mls/hr Q6 IVPB Last administered on 09/02/18at 05:01; Admin Dose 200 MLS/HR; Start 09/01/18 at 05:30 Vancomycin HCl (Vanco Iv Per Pharmacy) VANCOMYCIN PER PHARMACY PER PROTOCOL XX ; Start 09/01/18 at 05:30 Famotidine (Pepcid Iv) 20 mg DAILY@0600 IV Last administered on 09/02/18at 05:01; Admin Dose 20 MG; Start 09/01/18 at 06:00 Vancomycin HCl 250 ml @ 125 mls/hr Q24H IVPB Last administered on 09/02/18 08:59; Admin Dose 125 MLS/HR; Start 09/02/18 at 08:00 Aspirin (Ecotrin) 325 mg DAILY PO Last administered on 09/02/18 08:57; Admin Dose 325 MG; Start 09/01/18 at 09:00 Atorvastatin Calcium (Lipitor) 20 mg HS PO Last administered on 09/01/18at 21:34; Admin Dose 20 MG; Start 09/01/18 at 21:00 Insulin Human Regular 100 unit/ Sodium Chloride 100 ml @ 0 mls/hr PER PROTOCOL IV Last administered on 09/02/18at 07:33; Admin Dose 1.5 MLS/HR; Start 09/01/18 at 07:30 Miscellaneous Information (* Miscellaneous Pharmacy Order) Treatment of Hypoglycemia: 1.BG 51... Per protocol XX ; Start 09/01/18 at 07:30 Dextrose (D50w Syringe) 25 ml Q15M PRN IV .DECREASED GLUCOSE; Start 09/01/18 at 07:30 Dextrose (D50w Syringe) 50 ml Q15M PRN IV .DECREASED GLUCOSE; Start 09/01/18 at 07:30 Vancomycin HCl 1.5 gm/Sodium Chloride 250 ml @ 83.333 mls/ hr Q24H IVPB Last administered on 09/01/18at 09:32; Admin Dose 83.333 MLS/HR; Start 09/01/18 at 08:00 Heparin Sodium (Porcine) (Heparin (1000 Units/ml)) 4,000 unit PER PROTOCOL PRN IV aPTT<47 Last administered on 09/01/18at 21:59; Admin Dose 4,000 UNIT; Start 09/01/18 at 12:00 Norepinephrine 250 ml @ 1.875 mls/ hr TITRATE IV Last administered on 09/02/18at 00:03; Admin Dose 20.625 MLS/HR; Start 09/01/18 at 12:30 Propofol 100 ml @ 2.1 mls/hr Q12H IV Last administered on 09/02/18at 00:03; Admin Dose 2.52 MLS/HR; Start 09/01/18 at 12:30 Sodium Chloride 1,000 ml @ 100 mls/hr Q10H IV Last administered on 09/02/18at 09:09; Admin Dose 100 MLS/HR; Start 09/01/18 at 13:30 Heparin Sodium (Porcine) (Heparin (1000 Units/ml)) 4,000 unit PER PROTOCOL PRN IV aPTT<47; Start 09/01/18 at 13:30 Heparin Sodium (Porcine) 250 ml @ 8.5 mls/hr PER PROTOCOL IV Last administered on 09/01/18at 13:52; Admin Dose 8.5 MLS/HR; Start 09/01/18 at 13:30 Fentanyl 100 ml @ 2.5 mls/hr TITRATE IV Last administered on 09/02/18at 05:10; Admin Dose 10 MLS/HR; Start 09/01/18 at 15:30 HERACLIO SHIRLEY MD September 02, 2018 11:07
--- NOTE | 2018-09-02 11:12 | CONS ---
Consult Date/Type/Reason Admit Date/Time September 01, 2018 at 05:34 Initial Consult Date 09/01/18 Type of Consult Pulmonary Requesting Provider: RONNI NUNEZ Date/Time of Note DATE: 09/02/18 TIME: 11:05 Subjective Patient awake alert this morning on AC mechanical ventilation no respiratory distress. Objective Vital Signs Date Temp Pulse Resp B/P (MAP) Pulse Ox O2 O2 Flow FiO2 Time Delivery Rate 09/02/18 86 08:00 09/02/18 18 122/63 100 06:45 (82) 09/02/18 Mechanical 06:00 Ventilator 09/02/18 40 05:39 09/02/18 98.2 04:00 09/01/18 10.0 08:45 Intake and Output 09/01/18 09/01/18 09/02/18 1414:59 22:59 06:59 IntakeIntake Total 1005.416 ml 948.51 ml 1312.410 ml OutputOutput Total 90 ml 200 ml 260 ml BalanceBalance 915.416 ml 748.51 ml 1052.410 ml Exam GENERAL: Well-nourished well-developed gentleman comfortable on mechanical ventilation VITAL SIGNS: per chart NECK: Supple. No JVD or lymphadenopathy. CARDIAC EXAM: S1, S2. No added sounds or murmurs. CHEST: clear bilaterally, No added sounds, rales or wheezes ABDOMEN: Soft, nontender. No guarding or rebound. EXTREMITIES: No cyanosis, clubbing or edema. NEUROLOGIC: Generalized weakness. No focal deficits. Vent Setting Ventilator Support Mode: AC Fraction of Inspired Oxygen pe: 40 Positive End Expiratory Pressu: 5.0 Results/Medications Result Diagram: 09/02/18 0340 09/02/18 0340 Results 24 hrs Laboratory Tests Test 09/01/18 11:47 09/01/18 12:15 09/01/18 12:47 09/01/18 13:42 Bedside Glucose 311 H 256 H Creatine Kinase 454 H Creatine Kinase 7.4 Index Creatinine 33.70 H Kinase MB (Mass) Troponin I 14.500 *H White Blood 18.1 #H Count Red Blood Count 3.54 #L Hemoglobin 10.9 #L Hematocrit 32.8 #L Mean Corpuscular 92.7 Volume Mean Corpuscular 30.8 Hemoglobin Mean Corpuscular 33.2 Hemoglobin Ban nt Red Cell 13.1 Distribution Width Platelet Count 171 # Mean Platelet 11.5 H Volume Immature 0.500 H Granulocytes % Neutrophils % 87.2 H Lymphocytes % 6.4 L Monocytes % 5.7 Eosinophils % 0.0 Basophils % 0.2 Nucleated Red 0.0 Blood Cells % Immature 0.090 H Granulocytes # Neutrophils # 15.8 H Lymphocytes # 1.2 Monocytes # 1.0 H Eosinophils # 0.0 Basophils # 0.0 Nucleated Red 0.0 Blood Cells # Prothrombin Time 15.3 H Prothrombin Time 1.2 Ratio INR 1.20 International Normalized Ratio Activated 30.8 Partial Thrombop last Time Test 09/01/18 13:59 09/01/18 14:46 09/01/18 16:05 09/01/18 16:54 Bedside Glucose 194 191 125 113 Test 09/01/18 17:57 09/01/18 19:08 09/01/18 19:49 09/01/18 21:22 Blood Gas Blood arterial Specimen Source Arterial Blood 09/01/2018 6:00: Date Drawn 51 PM Arterial Blood 7.395 pH (Temp corrected) Arterial Blood 34.1 L pCO2 (Temp correct) Arterial Blood 110.7 H pO2 (Temp corrected) Arterial Blood 20.4 L HCO3 Arterial Blood -3.7 L Base Excess Arterial Blood 97.5 Oxygen Saturatio n Dejon Test N/A Arterial Blood A-Line Gas Puncture Site Arterial 0.2 Blood Carboxyhem oglobin Arterial Blood 0.1 Methemoglobin Blood Gas A-a O2 423.9 H Differential Oxyhemoglobin 97.2 Percent Blood Gas 37.0 Temperature Blood Gas 18.0 Respiration Rate Blood Gas Actual 18 Respiration Rate Blood Gas VENT - AC Modality FiO2 80.0 Blood Gas Tidal 500.0 Volume Blood Gas Low 5.0 PEEP Setting Blood Gas MDA Notified Whom Blood Gas 09/01/2018 6:03: Notified Time 41 PM Bedside Glucose 144 196 Activated 37.8 H Partial Thrombop last Time Mix PTT Normal Plasma Immediate Test 09/01/18 22:48 09/02/18 00:10 09/02/18 01:39 09/02/18 03:40 Bedside Glucose 181 156 128 White Blood 15.6 H Count Red Blood Count 3.04 L Hemoglobin 10.0 L Hematocrit 29.2 L Mean Corpuscular 96.1 Volume Mean Corpuscular 32.9 Hemoglobin Mean Corpuscular 34.2 Hemoglobin Ban nt Red Cell 13.2 Distribution Width Platelet Count 157 Mean Platelet 11.6 H Volume Immature 0.400 Granulocytes % Neutrophils % 76.2 Lymphocytes % 15.6 Monocytes % 7.2 Eosinophils % 0.1 Basophils % 0.5 Nucleated Red 0.0 Blood Cells % Immature 0.070 H Granulocytes # Neutrophils # 11.9 H Lymphocytes # 2.4 Monocytes # 1.1 H Eosinophils # 0.0 Basophils # 0.1 Nucleated Red 0.0 Blood Cells # Activated 156.5 *H Partial Thrombop last Time Sodium Level 143 Potassium Level 4.3 Chloride Level 112 H Carbon Dioxide 26 Level Anion Gap 5 # Blood Urea 29 H Nitrogen Creatinine 1.34 H Est Glomerular 53 L Filtrat Rate mL/min Glucose Level 73 # Hemoglobin A1c 8.6 H Lactic Acid 1.2 Level Calcium Level 8.3 L Phosphorus Level 3.6 Magnesium Level 1.6 L Triglycerides 44 Level Cholesterol 103 Level LDL Cholesterol, 54 Calculated HDL Cholesterol 40 Cholesterol/HDL 2.5 Ratio Test 09/02/18 04:28 09/02/18 04:53 09/02/18 05:00 09/02/18 05:09 Bedside Glucose 69 L 128 120 Blood Gas Blood arterial Specimen Source Arterial Blood 09/02/2018 5:00: Date Drawn 51 AM Arterial Blood 7.436 pH (Temp corrected) Arterial Blood 31.8 L pCO2 (Temp correct) Arterial Blood 182.9 H pO2 (Temp corrected) Arterial Blood 20.9 L HCO3 Arterial Blood -2.6 Base Excess Arterial Blood 98.6 H Oxygen Saturatio n Dejon Test N/A Arterial Blood A-Line Gas Puncture Site Arterial 0.3 Blood Carboxyhem oglobin Arterial Blood 0.2 Methemoglobin Blood Gas A-a O2 173.9 H Differential Oxyhemoglobin 98.1 Percent Blood Gas 37.0 Temperature Blood Gas 18.0 Respiration Rate Blood Gas Actual 18 Respiration Rate Blood Gas VENT - AC Modality FiO2 55.0 Blood Gas Tidal 500.0 Volume Blood Gas Low 5.0 PEEP Setting Blood Gas UP Notified Whom Blood Gas 09/02/2018 5:08: Notified Time 59 AM Test 09/02/18 06:06 09/02/18 07:28 09/02/18 08:59 09/02/18 11:01 Bedside Glucose 119 172 141 135 Medications Current Medications Fentanyl (Sublimaze) 25 mcg Q10M PRN IV SEDATION Last administered on 09/01/18 04:38; Admin Dose 25 MCG; Start 09/01/18 at 04:00 Propofol 100 ml @ 2.1 mls/hr ONCE STAT IV Last administered on 09/01/18 04:10; Admin Dose 2.1 MLS/HR; Start 09/01/18 at 03:54; Stop 09/03/18 at 03:31 Norepinephrine 250 ml @ 7.5 mls/hr PER PROTOCOL ONCE IV Last administered on 09/01/18 04:30; Admin Dose 7.5 MLS/HR; Start 09/01/18 at 04:30; Stop 09/02/18 at 13:49 Propofol 100 ml @ 2.1 mls/hr ONCE STAT IV ; Start 09/01/18 at 04:25; Stop 09/03/18 at 04:02 Fentanyl 100 ml @ 2.5 mls/hr TITRATE ONCE IV Last administered on 09/01/18 04:42; Admin Dose 2.5 MLS/HR; Start 09/01/18 at 04:30; Stop 09/02/18 at 20:29 Ondansetron HCl (Zofran Inj) 4 mg Q6H PRN IV NAUSEA AND/OR VOMITING; Start 09/01/18 at 05:30 Albuterol (Ventolin Hfa) 4 puff Q2H RESP THERAPY PRN INH SHORTNESS OF BREATH; Start 09/01/18 at 05:30 Ipratropium [place] (Atrovent Hfa) 4 puff Q2H RESP THERAPY PRN INH SHORTNESS OF BREATH; Start 09/01/18 at 05:30 Acetaminophen (Tylenol Supp) 650 mg Q4H PRN NV PAIN LEVEL 1-3 OR FEVER; Start 09/01/18 at 05:30 Diagnostic Test (Pha) (Accu-Chek) 1 ea Q1H XX Last administered on 09/02/18 08:59; Admin Dose 1 EA; Start 09/01/18 at 05:30 Miscellaneous Information (* Miscellaneous Pharmacy Order) Treatment of Hypoglyc emia: 1.BG 51... Per protocol XX ; Start 09/01/18 at 05:30 Dextrose (D50w Syringe) 25 ml Q15M PRN IV .DECREASED GLUCOSE Last administered on 09/02/18 04:45; Admin Dose 25 ML; Start 09/01/18 at 05:30 Dextrose (D50w Syringe) 50 ml Q15M PRN IV .DECREASED GLUCOSE; Start 09/01/18 at 05:30 Piperacillin Sod/ Tazobactam Sod 100 ml @ 200 mls/hr Q6 IVPB Last administered on 09/02/18at 05:01; Admin Dose 200 MLS/HR; Start 09/01/18 at 05:30 Vancomycin HCl (Vanco Iv Per Pharmacy) VANCOMYCIN PER PHARMACY PER PROTOCOL XX ; Start 09/01/18 at 05:30 Famotidine (Pepcid Iv) 20 mg DAILY@0600 IV Last administered on 09/02/18at 05:01; Admin Dose 20 MG; Start 09/01/18 at 06:00 Vancomycin HCl 250 ml @ 125 mls/hr Q24H IVPB Last administered on 09/02/18at 08:59; Admin Dose 125 MLS/HR; Start 09/02/18 at 08:00 Aspirin (Ecotrin) 325 mg DAILY PO Last administered on 09/02/18at 08:57; Admin Dose 325 MG; Start 09/01/18 at 09:00 Atorvastatin Calcium (Lipitor) 20 mg HS PO Last administered on 09/01/18at 21:34; Admin Dose 20 MG; Start 09/01/18 at 21:00 Insulin Human Regular 100 unit/ Sodium Chloride 100 ml @ 0 mls/hr PER PROTOCOL IV Last administered on 09/02/18at 07:33; Admin Dose 1.5 MLS/HR; Start 09/01/18 at 07:30 Miscellaneous Information (* Miscellaneous Pharmacy Order) Treatment of Hypoglycemia: 1.BG 51... Per protocol XX ; Start 09/01/18 at 07:30 Dextrose (D50w Syringe) 25 ml Q15M PRN IV .DECREASED GLUCOSE; Start 09/01/18 at 07:30 Dextrose (D50w Syringe) 50 ml Q15M PRN IV .DECREASED GLUCOSE; Start 09/01/18 at 07:30 Vancomycin HCl 1.5 gm/Sodium Chloride 250 ml @ 83.333 mls/ hr Q24H IVPB Last administered on 09/01/18at 09:32; Admin Dose 83.333 MLS/HR; Start 09/01/18 at 08:00 Heparin Sodium (Porcine) (Heparin (1000 Units/ml)) 4,000 unit PER PROTOCOL PRN IV aPTT<47 Last administered on 09/01/18at 21:59; Admin Dose 4,000 UNIT; Start 09/01/18 at 12:00 Norepinephrine 250 ml @ 1.875 mls/ hr TITRATE IV Last administered on 09/02/18at 00:03; Admin Dose 20.625 MLS/HR; Start 09/01/18 at 12:30 Propofol 100 ml @ 2.1 mls/hr Q12H IV Last administered on 09/02/18at 00:03; Admin Dose 2.52 MLS/HR; Start 09/01/18 at 12:30 Sodium Chloride 1,000 ml @ 100 mls/hr Q10H IV Last administered on 09/02/18at 09:09; Admin Dose 100 MLS/HR; Start 09/01/18 at 13:30 Heparin Sodium (Porcine) (Heparin (1000 Units/ml)) 4,000 unit PER PROTOCOL PRN IV aPTT<47; Start 09/01/18 at 13:30 Heparin Sodium (Porcine) 250 ml @ 8.5 mls/hr PER PROTOCOL IV Last administered on 09/01/18at 13:52; Admin Dose 8.5 MLS/HR; Start 09/01/18 at 13:30 Fentanyl 100 ml @ 2.5 mls/hr TITRATE IV Last administered on 09/02/18at 05:10; Admin Dose 10 MLS/HR; Start 09/01/18 at 15:30 Assessment/Plan Hospital Course (Demo Recall) IMP: 1. Cardiopulmonary Arrest--2/2 acute NSTEMI with associated pulmonary edema resulting in respiratory failure and subsequent arrest. 2. Acute NSTEMI 3. Shock--possibly cardiogenic, although cannot exclude co-existing sepsis, clinically improved. 4. CHF 5. Possible aspiration pneumonitis 6. [place] 7. DM 8. H/O CVA RECS: 1. Vent support. Will adjust settings. 2. Follow neuro exam closely 3. Follow serial TnI 4. LHC as per Cardiology 5. Broad-spectrum abx 6. Otero-cultures 7. Follow renal function closely 8. Serial lactates 9. CPAP trial 10. Discussed with Dr Murphy, patient high risk would likely need tertiary care for cabg. Will attempt extubation in meantime. cc 40 mins. NELY MIKE MD, [facility] September 02, 2018 11:12
--- NOTE | 2018-09-02 13:50 | RADRPT ---
Echocardiogram Report Patient Name: GABRIELLE RODRIGUESPatient ID: [id number] : 07-27-1951 (67y 10m)Study Date: 09/01/2018 12:59:02 PM Gender: MAccession #: [id number] Tech: ERVIN Location: 106 Ref.Physician: KAY ARAGON Height(Cm): 168 BSA: 1.81Weight(Kg): 69.9 Quality: AdequateAccount #: Procedures: Echocardiographic Report: Transthoracic echocardiogram with complete 2D, M-Mode, and doppler examination. Indications: Myocardial Infarction. Measurements: 2D/M Mode Doppler Measurement Value Normal Range Measurement Value Normal Range LA Volume 56.1 [ 18.0 - 58.0 ] ml YOLANDE VTI 0.9 [ 2.0 - 4.0 ] cm2 LA Volume Index 31 [ 16 - 34 ] ml/m2 AV Mean Martin 1.8 [ 70.0 - 90.0 ] cm/ sec LVIDd 2D 4.0 [ 4.2 - 5.8 ] cm AV Mean PG 15.0 [ 2.0 - 4.0 ] mmHg LVIDs 2D 2.8 [ 2.5 - 4.0 ] cm AV VTI 47.1 cm LVPWd 2D 1.1 [ 0.6 - 1.0 ] cm LVOT Mean Martin 0.5 [ 60.0 - 80.0 ] cm/ sec IVSd 2D 1.3 [ 0.6 - 1.0 ] cm LVOT Mean PG 1.0 [ 1.0 - 3.0 ] mmHg AoR Diam 2D 1.9 [ 2.6 - 3.4 ] cm LVOT Peak Martin 0.7 [ 70.0 - 110.0 ] cm /sec EDV 2D 70.4 [ 62.0 - 150.0 ] ml LVOT Peak PG 2.0 [ 2.0 - 6.0 ] mmHg ESV 2D 30.6 [ 21.0 - 61.0 ] ml LVOT VTI 14.5 [ 20.0 - 30.0 ] cm EF 2D 56.5 [ 52.0 - 72.0 ] percent MV E Peak Martin 0.5 [ 60.0 - 130.0 ] cm /sec LA Dimen 2D 2.9 [ 3.0 - 4.0 ] cm MV A Peak Martin 0.7 [ 100.0 - 120.0 ] c m/sec LVOT Diam 1.9 [ 2.3 - 2.9 ] cm MV E/A 0.7 [ 0.8 - 1.5 ] ratio MV PHT 77.0 [ 20.0 - 100.0 ] ms ec MV Decel Time 264 [ 104 - 258 ] msec MV Decel [place] 2 Lat E` Martin 0.1 [ 10.0 - 15.0 ] cm/ sec Lateral E/E` 10.6 [ 1.0 - 2.0 ] ratio Med E` Martin 0.0 cm/sec MV E/A 0.7 [ 0.8 - 1.5 ] ratio MVA PHT 2.9 [ 2.0 - 4.0 ] cm2 Findings: Left Ventricle: Normal left ventricular cavity size. Mild concentric left ventricular hypertrophy. Severe left ventricular systolic dysfunction. Ejection fraction is visually estimated at 30 %. Tissue Doppler/Mitral Doppler indices are consistent with impaired relaxation (Stage I diastolic dysfunction). These segments of the LV are hypokinetic apical anterior segment, inferior apex segment, inferoseptum mid segment, anteroseptum mid segment and apical septum. Right Ventricle: Normal right ventricular size. Normal right ventricular systolic function. Left Atrium: The left atrium is normal in size. Right Atrium: The right atrium is normal in size. Mitral Valve: Mitral valve leaflets appear mildly thickened. Mild mitral annular calcification. Trace mitral regurgitation. Aortic Valve: Moderate to severe aortic stenosis. Aortic valve Max velocity 2.57 m/sec. Max PG 26.00 mmHg. Mean PG 15.00 mmHg. Aortic valve area 0.82 cm2. Aortic cusps appear severely calcified. Tricuspid Valve: Normal appearance of the tricuspid valve. Unable to obtain RVSP due to minimal presence of tricuspid regurgitation. Pulmonic Valve: Normal pulmonic valve appearance. Pericardium: Normal pericardium with no significant pericardial effusion. Aorta: Normal aortic root. IVC: Dilated IVC without respiratory collapse consistent with elevated right atrial pressure. Conclusions: Normal left ventricular cavity size. Mild concentric left ventricular hypertrophy. Severe left ventricular systolic dysfunction. Ejection fraction is visually estimated at 30 %. Tissue Doppler/Mitral Doppler indices are consistent with impaired relaxation (Stage I diastolic dysfunction). These segments of the LV are hypokinetic apical anterior segment, inferior apex segment, inferoseptum mid segment, anteroseptum mid segment and apical septum. The left atrium is normal in size. Mitral valve leaflets appear mildly thickened. Mild mitral annular calcification. Trace mitral regurgitation. Normal appearance of the tricuspid valve. Unable to obtain RVSP due to minimal presence of tricuspid regurgitation. Moderate to severe aortic stenosis. Aortic valve Max velocity 2.57 m/sec. Max PG 26.00 mmHg. Mean PG 15.00 mmHg. Aortic valve area 0.82 cm2. Aortic cusps appear severely calcified. Electronically Signed By: Kay Aragon 2018-09-02 13:50:27 PDT
[2018-09-02] MEDS ORDERED: GLUCAGON 1 MG INJ IM PRN (16:30)
[2018-09-02] MEDS ORDERED: DEXTROSE 50% 50 ML SYRINGE IV PRN ×2 (16:30)
[2018-09-02] MEDS ORDERED: GLUCOSE GEL 15 GRAM TUBE BUCCAL PRN (16:30)
[2018-09-02] MEDS ORDERED: GLUCOSE GEL 15 GRAM TUBE PO PRN ×2 (16:30)
--- NOTE | 2018-09-02 16:37 | CONS ---
Consult Date/Type/Reason Admit Date/Time September 01, 2018 at 05:34 Initial Consult Date 09/02/18 Type of Consultation: CV Requesting Provider: RONNI NUNEZ Date/Time of Note DATE: 09/02/18 TIME: 16:32 Subjective Interventional cardiology follow-up progress note Subjective: Case discussed with the staff. Discussed with the patient and daughters. Discussed with multiple physician including cardiac surgery at [facility] as well as cardiac surgery at [facility] CT surgery input here as appreciated. Patient felt to be too high risk to have the surgery done at [facility]. He remains intubated but responds appropriately. No report of chest pain or pressure Objective: General: Obese gentleman status post intubation on the vent HEENT: NC/AT. pupils are equal pinpoint to NECK: . no stridor. CV: RRR. systolic murmur; no gallop or rubs. PULM: no wheezing . +rhonchi. GI: SOFT, NT, ND, no rebound or guarding Extremity: trace B/L LE edema. no clubbing. neuro: Awake and follows commands Psych: calm and pleasant rectal: deferred : s/p piper Multiple EKGs was reviewed. Initial EKG shows narrow complex tachycardia. Possible junctional tachycardia. Inferior infarct anterior infarct age undetermined this week ST-T wave abnormalities EKG done at 1147 shows normal sinus rhythm. Anterior infarct age undetermined inferior infarct age undetermined CT pulmonary angiogram done in the emergency room shows: CTA aorta and branches: The thoracic aorta is normal in contour and caliber with no dissection or aneurysmal dilatation. Mild scattered atherosclerotic plaque is identified. Similarly, the abdominal aorta is patent and normal in caliber with no dissection or stenosis evident. Moderate fibrocalcific plaque is scattered throughout the aorta and proximal aortic branches. The celiac axis is patent without a high-grade stenosis. Fibrocalcific plaque is seen in the proximal celiac axis and proximal splenic artery without high grade stenoses. Mild soft plaque is seen in the mid superior mesenteric artery without a high-g rade stenosis. The main renal arteries are patent and grossly normal in appearance aside from scattered atherosclerotic plaque. The inferior mesenteric artery is also patent and grossly normal appearance. There is moderate fibrocalcific plaque within the common iliac arteries bilaterally with areas of mild narrowing but no high-grade stenosis. Moderate fibrocalcific plaque is seen in the proximal internal iliac arteries with areas of prominent stenosis seen on the right. CT chest: The main pulmonary arteries are normal in appearance. There are moderate size bilateral pleural effusions with associated atelectasis / consolidation in the lower lobes. The heart is mildly enlarged. Extensive atherosclerotic calcifications of the coronary arteries are seen. An endotracheal tube is situated approximately 2 cm above the jav[address]. CT abdomen and pelvis: Scatter artifact from the patient's arms being at his side precludes detailed evaluation of the liver and spleen though no gross abnormalities are seen. The gallbladder, pancreas, adrenal glands, and kidneys are grossly normal in appearance. The visualized bowel is grossly unremarkable. No significant free air or free fluid is seen. The urinary bladder is decompressed by Piper catheter. Dehiscence of the inguinal canals is seen bilate rally. Degenerative changes of the thoracolumbar spine are seen diffusely. Echocardiogram was personally reviewed which shows: Normal left ventricular cavity size. Mild concentric left ventricular hypertrophy. Severe left ventricular systolic dysfunction. Ejection fraction is visually estimated at 30 %. Tissue Doppler/Mitral Doppler indices are consistent with impaired relaxation (Stage I diastolic dysfunction). These segments of the LV are hypokinetic apical anterior segment, inferior apex segment, inferoseptum mid segment, anteroseptum mid segment and apical septum. The left atrium is normal in size. Mitral valve leaflets appear mildly thickened. Mild mitral annular calcification. Trace mitral regurgitation. Normal appearance of the tricuspid valve. Unable to obtain RVSP due to minimal presence of tricuspid regurgitation. Moderate to severe aortic stenosis. Aortic valve Max velocity 2.57 m/sec. Max PG 26.00 mmHg. Mean PG 15.00 mmHg. Aortic valve area 0.82 cm2. Aortic cusps appear severely calcified. Objective Vitals Vital Signs Date Temp Pulse Resp B/P (MAP) Pulse Ox O2 O2 Flow FiO2 Time Delivery Rate 09/02/18 79 22 100 40 15:40 09/02/18 122/63 06:45 (82) 09/02/18 Mechanical 06:00 Ventilator 09/02/18 98.2 04:00 09/01/18 10.0 08:45 Intake and Output 09/01/18 09/01/18 09/02/18 1515:00 23:00 07:00 IntakeIntake Total 1059.516 ml 1034.05 ml 1282.770 ml OutputOutput Total 125 ml 195 ml 230 ml BalanceBalance 934.516 ml 839.05 ml 1052.770 ml Results/Medications Result Diagram: 09/02/18 0340 09/02/18 0340 Results 24 hrs Laboratory Tests Test 09/01/18 16:54 09/01/18 17:57 09/01/18 19:08 09/01/18 19:49 Bedside Glucose 113 144 Blood Gas Blood arterial Specimen Source Arterial Blood 09/01/2018 6:00: Date Drawn 51 PM Arterial Blood 7.395 pH (Temp corrected ) Arterial Blood 34.1 L pCO2 (Temp correct) Arterial Blood 110.7 H pO2 (Temp corrected ) Arterial Blood 20.4 L HCO3 Arterial Blood -3.7 L Base Excess Arterial Blood 97.5 Oxygen Saturati on Dejon Test N/A Arterial Blood A-Line Gas Puncture Site Arterial 0.2 Blood Carboxyhe moglobin Arterial Blood 0.1 Methemoglobin Blood Gas A-a 423.9 H O2 Differential Oxyhemoglobin 97.2 Percent Blood Gas 37.0 Temperature Blood Gas 18.0 Respiration Rate Blood Gas 18 Actual Respiration Rat e Blood Gas VENT - AC Modality FiO2 80.0 Blood Gas Tidal 500.0 Volume Blood Gas Low 5.0 PEEP Setting Blood Gas MDA Notified Whom Blood Gas 09/01/2018 6:03: Notified Time 41 PM Activated 37.8 H Partial Thrombo plast Time Mix PTT Normal Plasma Immediat e Test 09/01/18 21:22 09/01/18 22:48 09/02/18 00:10 09/02/18 01:39 Bedside Glucose 196 181 156 128 Test 09/02/18 03:40 09/02/18 04:28 09/02/18 04:53 09/02/18 05:00 White Blood 15.6 H Count Red Blood Count 3.04 L Hemoglobin 10.0 L Hematocrit 29.2 L Mean 96.1 Corpuscular Volume Mean 32.9 Corpuscular Hemoglobin Mean 34.2 Corpuscular Hemoglobin Conc ent Red Cell 13.2 Distribution Width Platelet Count 157 Mean Platelet 11.6 H Volume Immature 0.400 Granulocytes % Neutrophils % 76.2 Lymphocytes % 15.6 Monocytes % 7.2 Eosinophils % 0.1 Basophils % 0.5 Nucleated Red 0.0 Blood Cells % Immature 0.070 H Granulocytes # Neutrophils # 11.9 H Lymphocytes # 2.4 Monocytes # 1.1 H Eosinophils # 0.0 Basophils # 0.1 Nucleated Red 0.0 Blood Cells # Activated 156.5 *H Partial Thrombo plast Time Sodium Level 143 Potassium Level 4.3 Chloride Level 112 H Carbon Dioxide 26 Level Anion Gap 5 # Blood Urea 29 H Nitrogen Creatinine 1.34 H Est Glomerular 53 L Filtrat Rate mL/min Glucose Level 73 # Hemoglobin A1c 8.6 H Lactic Acid 1.2 Level Calcium Level 8.3 L Phosphorus 3.6 Level Magnesium Level 1.6 L Triglycerides 44 Level Cholesterol 103 Level LDL 54 Cholesterol, Calculated HDL Cholesterol 40 Cholesterol/HDL 2.5 Ratio Bedside Glucose 69 L 128 Blood Gas Blood Specimen arterial Source Arterial Blood 09/02/2018 5:00 Date Drawn :51 AM Arterial Blood 7.436 pH (Temp corrected ) Arterial Blood 31.8 L pCO2 (Temp correct) Arterial Blood 182.9 H pO2 (Temp corrected ) Arterial Blood 20.9 L HCO3 Arterial Blood -2.6 Base Excess Arterial Blood 98.6 H Oxygen Saturati on Dejon Test N/A Arterial Blood A-Line Gas Puncture Site Arterial 0.3 Blood Carboxyhe moglobin Arterial Blood 0.2 Methemoglobin Blood Gas A-a 173.9 H O2 Differential Oxyhemoglobin 98.1 Percent Blood Gas 37.0 Temperature Blood Gas 18.0 Respiration Rate Blood Gas 18 Actual Respiration Rat e Blood Gas VENT - AC Modality FiO2 55.0 Blood Gas Tidal 500.0 Volume Blood Gas Low 5.0 PEEP Setting Blood Gas UP Notified Whom Blood Gas 09/02/2018 5:08 Notified Time :59 AM Test 09/02/18 05:09 09/02/18 06:06 09/02/18 07:28 09/02/18 08:59 Bedside Glucose 120 119 172 141 Test 09/02/18 11:00 09/02/18 11:01 09/02/18 11:43 09/02/18 12:51 Blood Gas Blood arterial Specimen Source Arterial Blood 09/02/2018 1:05: Date Drawn 17 PM Arterial Blood 7.375 pH (Temp corrected ) Arterial Blood 39.0 pCO2 (Temp correct) Arterial Blood 87.8 pO2 (Temp corrected ) Arterial Blood 22.3 HCO3 Arterial Blood -2.6 Base Excess Arterial Blood 95.8 Oxygen Saturati on Dejon Test N/A Arterial Blood A-Line Gas Puncture Site Arterial 0.3 Blood Carboxyhe moglobin Arterial Blood 0.1 Methemoglobin Blood Gas A-a 152.6 H O2 Differential Oxyhemoglobin 95.4 Percent Blood Gas 37.0 Temperature Blood Gas 15 Actual Respiration Rat e Blood Gas VENT - CPAP Modality FiO2 40.0 Blood Gas Low 5.0 PEEP Setting Blood Gas 10 Pressure Support Blood Gas TM Notified Whom Blood Gas 09/02/2018 1:14: Notified Time 01 PM Bedside Glucose 135 158 122 Activated 59.8 H Partial Thrombo plast Time Test 09/02/18 15:03 Bedside Glucose 122 Home Meds Active Scripts Metformin* (Glucophage*) 500 Mg Tab, 500 MG PO BID, #60 TAB Prov:ARMANDO OVALLEP S. 12/23/13 Lisinopril* (Lisinopril*) 10 Mg Tablet, 10 MG PO DAILY, #30 TAB Prov:BRONWYN OVALLE S. 12/23/13 Atorvastatin Calcium* (Atorvastatin Calcium*) 20 Mg Tab, 20 MG PO HS, #30 Prov:ARMANDO OVALLEP S. 12/23/13 Insulin Glargine* (Lantus*) 100 Unit/Ml Soln, 22 UNIT SC HS for 30 Days Prov:BRONWYN OVALLE S. 12/23/13 Aspirin* (Ecotrin*) 325 Mg Tabec, 325 MG PO DAILY, #30 Prov:BRONWYN OVALLE S. 12/23/13 Medications Current Medications Fentanyl (Sublimaze) 25 mcg Q10M PRN IV SEDATION Last administered on 09/01/18at 04:38; Admin Dose 25 MCG; Start 09/01/18 at 04:00 Propofol 100 ml @ 2.1 mls/hr ONCE STAT IV Last administered on 09/01/18at 04:10; Admin Dose 2.1 MLS/HR; Start 09/01/18 at 03:54; Stop 09/03/18 at 03:31 Propofol 100 ml @ 2.1 mls/hr ONCE STAT IV ; Start 09/01/18 at 04:25; Stop 09/03/18 at 04:02 Fentanyl 100 ml @ 2.5 mls/hr TITRATE ONCE IV Last administered on 09/01/18at 04:42; Admin Dose 2.5 MLS/HR; Start 09/01/18 at 04:30; Stop 09/02/18 at 20:29 Ondansetron HCl (Zofran Inj) 4 mg Q6H PRN IV NAUSEA AND/OR VOMITING; Start 09/01/18 at 05:30 Albuterol (Ventolin Hfa) 4 puff Q2H RESP THERAPY PRN INH SHORTNESS OF BREATH; Start 09/01/18 at 05:30 Ipratropium [place] (Atrovent Hfa) 4 puff Q2H RESP THERAPY PRN INH SHORTNESS OF BREATH; Start 09/01/18 at 05:30 Acetaminophen (Tylenol Supp) 650 mg Q4H PRN ID PAIN LEVEL 1-3 OR FEVER; Start 09/01/18 at 05:30 Miscellaneous Information (* Miscellaneous Pharmacy Order) Treatment of Hypoglycemia: 1.BG 51... Per protocol XX ; Start 09/01/18 at 05:30 Piperacillin Sod/ Tazobactam Sod 100 ml @ 200 mls/hr Q6 IVPB Last administered on 09/02/18at 12:17; Admin Dose 200 MLS/HR; Start 09/01/18 at 05:30 Vancomycin HCl (Vanco Iv Per Pharmacy) VANCOMYCIN PER PHARMACY PER PROTOCOL XX ; Start 09/01/18 at 05:30 Famotidine (Pepcid Iv) 20 mg DAILY@0600 IV Last administered on 09/02/18at 05:01; Admin Dose 20 MG; Start 09/01/18 at 06:00 Vancomycin HCl 250 ml @ 125 mls/hr Q24H IVPB Last administered on 09/02/18at 08:59; Admin Dose 125 MLS/HR; Start 09/02/18 at 08:00 Aspirin (Ecotrin) 325 mg DAILY PO Last administered on 09/02/18at 08:57; Admin Dose 325 MG; Start 09/01/18 at 09:00 Atorvastatin Calcium (Lipitor) 20 mg HS PO Last administered on 09/01/18at 21:34; Admin Dose 20 MG; Start 09/01/18 at 21:00 Miscellaneous Information (* Miscellaneous Pharmacy Order) Treatment of Hypoglycemia: 1.BG 51... Per protocol XX ; Start 09/01/18 at 07:30 Heparin Sodium (Porcine) (Heparin (1000 Units/ml)) 4,000 unit PER PROTOCOL PRN IV aPTT<47 Last administered on 09/01/18at 21:59; Admin Dose 4,000 UNIT; Start 09/01/18 at 12:00 Norepinephrine 250 ml @ 1.875 mls/ hr TITRATE IV Last administered on 09/02/18at 00:03; Admin Dose 20.625 MLS/HR; Start 09/01/18 at 12:30 Propofol 100 ml @ 2.1 mls/hr Q12H IV Last administered on 09/02/18at 00:03; Admin Dose 2.52 MLS/HR; Start 09/01/18 at 12:30 Heparin Sodium (Porcine) (Heparin (1000 Units/ml)) 4,000 unit PER PROTOCOL PRN IV aPTT<47; Start 09/01/18 at 13:30 Heparin Sodium (Porcine) 250 ml @ 8.5 mls/hr PER PROTOCOL IV Last administered on 09/01/18at 13:52; Admin Dose 8.5 MLS/HR; Start 09/01/18 at 13:30 Fentanyl 100 ml @ 2.5 mls/hr TITRATE IV Last administered on 09/02/18at 05:10; Admin Dose 10 MLS/HR; Start 09/01/18 at 15:30 Miscellaneous Information (*Rx Drug Level Order Reminder*) VANCO TROUGH ON @ 700 0700 ONCE XX ; Start 09/03/18 at 07:00; Stop 09/03/18 at 07:01 Furosemide (Lasix) 20 mg BID DIURETICS IV ; Start 09/02/18 at 18:00 Insulin Aspart (Novolog Insulin Pen) NOVOLOG *MILD* ALGORI... Q4 SC ; Start 09/02/18 at 17:00 Miscellaneous Information (* Miscellaneous Pharmacy Order) Discontinue all previ... ONCE ONCE XX ; Start 09/02/18 at 17:00; Stop 09/02/18 at 17:01 Miscellaneous Information 1 ea NOTE XX ; Start 09/02/18 at 16:30 Glucose (Glutose) 15 gm Q15M PRN PO DECREASED GLUCOSE; Start 09/02/18 at 16:30 Glucose (Glutose) 22.5 gm Q15M PRN PO DECREASED GLUCOSE; Start 09/02/18 at 16:30 Dextrose (D50w Syringe) 25 ml Q15M PRN IV DECREASED GLUCOSE; Start 09/02/18 at 16:30 Dextrose (D50w Syringe) 50 ml Q15M PRN IV DECREASED GLUCOSE; Start 09/02/18 at 16:30 Glucagon (Glucagen) 1 mg Q15M PRN IM DECREASED GLUCOSE; Start 09/02/18 at 16:30 Glucose (Glutose) 15 gm Q15M PRN BUCCAL DECREASED GLUCOSE; Start 09/02/18 at 16:30 Assessment/Plan Hospital Course (Demo Recall) Non-ST elevation myocardial infarction Shock: Probably a combination of septic and cardiac area currently off Levophed drip Hypoxemic respiratory failure status post intubation on the vent Diabetes with diabetes ketoacidosis Hypertension currently hypotensive in shock Dyslipidemia Peripheral vascular disease History of CVA Status post cardiopulmonary arrest Likely pneumonia possibly aspiration Aortic stenosis: Moderate to severe Recommendations: We will stop the heparin drip for now Continue with aspirin After Levophed Vent support to be managed as per pulmonary. Arterial sheath will be removed. Aspirin statin to be continued. We will start beta-amador once able to tolerated Diuresis as needed Patient was felt to be too high risk to have his aortic valve replacement and bypass surgery done here. I have discussed the case with cardiac surgery at [facility]. Dr. Yolanda lofton has graciously accepted the patient. Patient to be transferred to [facility] for higher level of care when available bed Thank you for this referral. We will continue to follow him with you KAY MARRERO MD [facility] KAY MARRERO MD September 02, 2018 16:36
[2018-09-02] MEDS: INSULIN ASPART [NOVOLOG] 3 ML PEN SC SCH ×2 (17:00→20:28)
--- NOTE | 2018-09-02 17:35 | DS ---
Date/Time of Note Date/Time of Note DATE: 09/02/18 TIME: 17:24 Discharge Summary Admission/Discharge Info Admit Date/Time September 01, 2018 at 05:34 Discharge Date/Time Discharge Diagnosis NSTEMI CHF Patient Condition: Stable Hospital Course Patient presented to the emergency room at 3 AM yesterday complaining of shortness of breath and nausea. Will in triage he became pulseless and CPR was initiated with ROSC. CXR showed diffuse infiltrates consistent with either pulmonary edema or pneumonia. Mechanical ventilation was initiated and the pateint remains intubated at this time. He was started on an insulin drip for hyperglycemia with A1C of 12. His troponin was elevated to 6 -> 14.5. Heparin drip and aspirin were initiated. He was responsive and moving extremities so hypothermia was not performed. CT-A of the chest showed: "1. No evidence of thoracic or abdominal aortic aneurysm or dissection. 2. No high-grade stenosis of the aorta or major branches as outlined above. There does appear to be high-grade stenoses in the mid/distal right internal iliac artery. 3. Moderate size bilateral pleural effusions with associated atelectasis / consolidation. 4. Mild cardiomegaly with extensive atherosclerotic calcifications of the coronary arteries." Labs were also notable for creatinine 1.34. He underwent coronary angiography which revealed: 1. Left main coronary artery: Is large with about 60% distal stenosis. 2. Left anterior descending artery: Its a moderate size vessel and goes around the apex. It has 60 % stenosis proximally, and 99 % stenosis of the mid LAD. 3. Left circumflex artery: Is nondominant. It has 50 % stenosis maximally. Obtuse marginal 1 is a moderate size vessel with about 80% ostial stenosis. Obtuse marginal 2 also has another 95% stenosis at the proximal OM. 4. Right coronary artery: Is a large and dominant vessel. It has 100% stenosis maximally consistent with chronic total occlusion. There is a large right to right collaterals noted 5. LV pressure: 130/22; Aortic pressure by pull back is 111/57. gradient was about 20 mmHg By simultaneous pressure measurements of the left ventricle and femoral artery: LV pressure was 128/20 1 aortic pressure was 111/51. Mean gradient was 21 Right heart catheterization as follows: RA mean pressure is 13 RV pressure is 38/9 PA pressure is 35/19 Pulmonary artery wedge pressure is 22 Cardiac output was 6.3 He was unable to be extubated as yet. He is being transferred to [facility] for consideration of CABG Home Meds Active Scripts Metformin* (Glucophage*) 500 Mg Tab, 500 MG PO BID, #60 TAB Prov:BRONWYN OVALLE S. 12/23/13 Lisinopril* (Lisinopril*) 10 Mg Tablet, 10 MG PO DAILY, #30 TAB Prov:BRONWYN OVALLE S. 12/23/13 Atorvastatin Calcium* (Atorvastatin Calcium*) 20 Mg Tab, 20 MG PO HS, #30 Prov:ARMANDO OVALLEP S. 12/23/13 Insulin Glargine* (Lantus*) 100 Unit/Ml Soln, 22 UNIT SC HS for 30 Days Prov:BRONWYN OVALLE S. 12/23/13 Aspirin* (Ecotrin*) 325 Mg Tabec, 325 MG PO DAILY, #30 Prov:BRONWYN OVALLE S. 12/23/13 Primary Care Provider Care Physician No Primary Pending Labs Laboratory Tests Test 09/01/18 17:57 09/01/18 19:08 09/01/18 19:49 09/01/18 21:22 Blood Gas Blood arterial Specimen Source Arterial Blood 09/01/2018 6:00: Date Drawn 51 PM Arterial Blood 7.395 (7.350-7. pH 450) (Temp corrected ) Arterial Blood 34.1 pCO2 mmhg (35-45) (Temp correct) Arterial Blood 110.7 pO2 mmHG (80-100.0) (Temp corrected ) Arterial Blood 20.4 HCO3 mmol/L (22.0-26 .0) Arterial Blood -3.7 Base Excess mmol/L (-3.0-3) Arterial Blood 97.5 Oxygen Saturati mmHG (95.0-98.0 on ) Dejon Test N/A Arterial Blood A-Line Gas Puncture Site Arterial 0.2 % (0.0-3.0) Blood Carboxyhe moglobin Arterial Blood 0.1 % (0.0-1.5) Methemoglobin Blood Gas A-a 423.9 O2 mmHg (7.0-24.0) Differential Oxyhemoglobin 97.2 Percent % (93.0-99.0) Blood Gas 37.0 C Temperature Blood Gas 18.0 Respiration Rate Blood Gas 18 Actual Respiration Rat e Blood Gas VENT - AC Modality FiO2 80.0 % Blood Gas Tidal 500.0 mL Volume Blood Gas Low 5.0 cmH2O PEEP Setting Blood Gas MDA Notified Whom Blood Gas 09/01/2018 6:03: Notified Time 41 PM Bedside 144 196 Glucose mg/dL (70-220) mg/dL (70-220) Activated 37.8 Partial Thrombo Sec (23.0-35.0 plast Time ) Mix PTT Normal Sec Plasma Immediat e Test 09/01/18 22:48 09/02/18 00:10 09/02/18 01:39 09/02/18 03:40 Bedside 181 156 128 Glucose mg/dL (70-220) mg/dL (70-220) mg/dL (70-220) White Blood 15.6 Count 10^3/ul (4.8-1 0.8) Red Blood 3.04 Count 10^6/ul (4.70- 6.10) Hemoglobin 10.0 g/dl (14.0-18. 0) Hematocrit 29.2 % (42.0-52.0) Mean 96.1 Corpuscular fl (82.0-101.0 Volume ) Mean 32.9 Corpuscular pg (29.0-33.0) Hemoglobin Mean 34.2 Corpuscular g/dl (32.0-37. Hemoglobin Conc 0) ent Red Cell 13.2 Distribution % (11.5-14.5) Width Platelet Count 157 10^3/UL (140-4 15) Mean Platelet 11.6 Volume fl (7.4-10.4) Immature 0.400 Granulocytes % % (0.001-0.429 ) Neutrophils % 76.2 % (39.0-77.0) Lymphocytes % 15.6 % (15.0-51.0) Monocytes % 7.2 % (0.0-11.0) Eosinophils % 0.1 % (0.0-7.0) Basophils % 0.5 % (0.0-2.0) Nucleated Red 0.0 Blood Cells % /100WBC (0.0-0 .0) Immature 0.070 Granulocytes # 10^3/ul (0.0-0 .031) Neutrophils # 11.9 10^3/ul (1.6-7 .5) Lymphocytes # 2.4 10^3/ul (0.8-2 .9) Monocytes # 1.1 10^3/ul (0.3-0 .9) Eosinophils # 0.0 10^3/ul (0.0-0 .5) Basophils # 0.1 10^3/ul (0.0-0 .1) Nucleated Red 0.0 Blood Cells # 10^3/ul (0.0-0 .0) Activated 156.5 Partial Thrombo Sec (23.0-35.0 plast Time ) Sodium Level 143 mmol/L (135-14 4) Potassium 4.3 Level mmol/L (3.5-5. 1) Chloride Level 112 mmol/L (97-110 ) Carbon Dioxide 26 Level mmol/L (21-31) Anion Gap 5 (5-13) Blood Urea 29 Nitrogen mg/dl (7-20) Creatinine 1.34 mg/dl (0.61-1. 24) Est Glomerular 53 Filtrat mL/min (>60) Rate mL/min Glucose Level 73 mg/dl (70-220) Hemoglobin A1c 8.6 % (0-5.9) Lactic Acid 1.2 Level mmol/L (0.5-2. 0) Calcium Level 8.3 mg/dl (8.4-10. 2) Phosphorus 3.6 Level mg/dl (2.5-4.9 ) Magnesium 1.6 Level mg/dl (1.7-2.5 ) Triglycerides 44 Level mg/dl (0-149) Cholesterol 103 Level mg/dl (100-200 ) LDL 54 mg/dl Cholesterol, Calculated HDL 40 Cholesterol mg/dl (30-78) Cholesterol/HDL 2.5 RATIO Ratio Test 09/02/18 04:28 09/02/18 04:53 09/02/18 05:00 09/02/18 05:09 Bedside 69 128 120 Glucose mg/dL (70-220) mg/dL (70-220) mg/dL (70-220) Blood Gas Blood arterial Specimen Source Arterial Blood 09/02/2018 5:00 Date Drawn :51 AM Arterial Blood 7.436 (7.350-7 pH .450) (Temp corrected ) Arterial Blood 31.8 pCO2 mmhg (35-45) (Temp correct) Arterial Blood 182.9 pO2 mmHG (80-100.0 (Temp corrected ) ) Arterial Blood 20.9 HCO3 mmol/L (22.0-2 6.0) Arterial Blood -2.6 Base Excess mmol/L (-3.0-3 ) Arterial Blood 98.6 Oxygen Saturati mmHG (95.0-98. on 0) Dejon Test N/A Arterial Blood A-Line Gas Puncture Site Arterial 0.3 Blood Carboxyhe % (0.0-3.0) moglobin Arterial Blood 0.2 Methemoglobin % (0.0-1.5) Blood Gas A-a 173.9 O2 mmHg (7.0-24.0 Differential ) Oxyhemoglobin 98.1 Percent % (93.0-99.0) Blood Gas 37.0 C Temperature Blood Gas 18.0 Respiration Rate Blood Gas 18 Actual Respiration Rat e Blood Gas VENT - AC Modality FiO2 55.0 % Blood Gas Tidal 500.0 mL Volume Blood Gas Low 5.0 cmH2O PEEP Setting Blood Gas UP Notified Whom Blood Gas 09/02/2018 5:08 Notified Time :59 AM Test 09/02/18 06:06 09/02/18 07:28 09/02/18 08:59 09/02/18 11:00 Bedside 119 172 141 Glucose mg/dL (70-220) mg/dL (70-220) mg/dL (70-220) Blood Gas Blood arterial Specimen Source Arterial Blood 09/02/2018 1:05 Date Drawn :17 PM Arterial Blood 7.375 (7.350-7 pH .450) (Temp corrected ) Arterial Blood 39.0 pCO2 mmhg (35-45) (Temp correct) Arterial Blood 87.8 pO2 mmHG (80-100.0 (Temp corrected ) ) Arterial Blood 22.3 HCO3 mmol/L (22.0-2 6.0) Arterial Blood -2.6 Base Excess mmol/L (-3.0-3 ) Arterial Blood 95.8 Oxygen Saturati mmHG (95.0-98. on 0) Dejon Test N/A Arterial Blood A-Line Gas Puncture Site Arterial 0.3 Blood Carboxyhe % (0.0-3.0) moglobin Arterial Blood 0.1 Methemoglobin % (0.0-1.5) Blood Gas A-a 152.6 O2 mmHg (7.0-24.0 Differential ) Oxyhemoglobin 95.4 Percent % (93.0-99.0) Blood Gas 37.0 C Temperature Blood Gas 15 Actual Respiration Rat e Blood Gas VENT - CPAP Modality FiO2 40.0 % Blood Gas Low 5.0 cmH2O PEEP Setting Blood Gas 10 Pressure Support Blood Gas TM Notified Whom Blood Gas 09/02/2018 1:14 Notified Time :01 PM Test 09/02/18 11:01 09/02/18 11:43 09/02/18 12:51 09/02/18 15:03 Bedside 135 158 122 122 Glucose mg/dL (70-220) mg/dL (70-220) mg/dL (70-220) mg/dL (70-220) Activated 59.8 Partial Thrombo Sec (23.0-35.0 plast Time ) SATINDER JUAN MD September 02, 2018 17:34
[2018-09-02] MEDS ORDERED: FUROSEMIDE 20 MG INJ IV SCH (18:00)
[2018-09-02] MEDS: ATORVASTATIN 20 MG TAB PO SCH (20:29)
[2018-09-03] VITALS: BP 124/75; PULSE 90; PULSE 91; RESP 18
[2018-09-03 00:30] VITALS: BP 121/67; PULSE 91; RESP 19
== END 2018-09-03 00:50 | disposition short-term general hospital (02) | DRG 280 ==
LOC: E/R 03:25 → ICU 05:34
PROVIDERS: ADMIT Internal Medicine; ATTEND Internal Medicine
PROC: 4A023N8 Measurement of Cardiac Sampling and Pressure, Bilateral, Percutaneous Approach (ICD-10-PCS; principal; 2018-09-01)
PROC: B211YZZ Fluoroscopy of Multiple Coronary Arteries using Other Contrast (ICD-10-PCS; 2018-09-01)
PROC: B215YZZ Fluoroscopy of Left Heart using Other Contrast (ICD-10-PCS; 2018-09-01)
PROC: 0BH17EZ Insertion of Endotracheal Airway into Trachea, Via Natural or Artificial Opening (ICD-10-PCS; 2018-09-01)
PROC: 5A1945Z Respiratory Ventilation, 24-96 Consecutive Hours (ICD-10-PCS; 2018-09-01)
PROC: 5A12012 Performance of Cardiac Output, Single, Manual (ICD-10-PCS; 2018-09-01)
PROC: 05HM33Z Insertion of Infusion Device into Right Internal Jugular Vein, Percutaneous Approach (ICD-10-PCS; 2018-09-01)
PROC: 4A133R1 Monitoring of Arterial Saturation, Peripheral, Percutaneous Approach (ICD-10-PCS; 2018-09-01)
DX: I21.4 Non-ST elevation (NSTEMI) myocardial infarction (principal); J69.0 Pneumonitis due to inhalation of food and vomit; R57.0 Cardiogenic shock; J96.91 Respiratory failure, unspecified with hypoxia; N17.9 Acute kidney failure, unspecified; I25.10 Atherosclerotic heart disease of native coronary artery without angina pectoris; E11.65 Type 2 diabetes mellitus with hyperglycemia; E11.51 Type 2 diabetes mellitus with diabetic peripheral angiopathy without gangrene; E78.00 Pure hypercholesterolemia, unspecified; I35.0 Nonrheumatic aortic (valve) stenosis; I11.0 Hypertensive heart disease with heart failure; I50.9 Heart failure, unspecified; Z86.73 Personal history of transient ischemic attack (TIA), and cerebral infarction without residual deficits; Z79.84 Long term (current) use of oral hypoglycemic drugs; Z79.82 Long term (current) use of aspirin
CPT/HCPCS: 31500; 36415; 36600; 70450; 71045; 71275; 75635; 80048; 80053; 80061; 80307; 82550; 82553; 82803; 82962; 83036; 83605; 83735; 84100; 84484; 85025; 85335; 85610; 85730; 86850; 86900; 86901; 92950; 93005; 93306; 93460; 94002; 94003; 94770; C1887; C1894; J0171; J0692; J1644; J1815; J2405; J2543; J3010; J3370; J7030; J7040; J7042; J7050; Q9967